=== PATIENT | female | born 1985 | race Caucasian/White ===

== ENCOUNTER 2017-09-03 10:17 | Emergency (ER) | payer SELFPAY | END 2017-09-03 10:51 | disposition left against medical advice (07) | PROVIDERS: Emergency Provider Nurse Practitioner Family; Family Provider Emergency Medicine; Visit Provider Nurse Practitioner Family | DX: Z51.89 Encounter for other specified aftercare (principal); R52 Pain, unspecified; Z53.21 Procedure and treatment not carried out due to patient leaving prior to being seen by health care provider | CPT/HCPCS: 99201; 99211 ==

== ENCOUNTER 2017-10-24 20:08 | Emergency (ER) | payer OTHER, MEDICAID, SELFPAY ==
[2017-10-24 20:14] VITALS: BP 98/58; PULSE 93; RESP 18; TEMP 36.8; O2SAT 100; BMI 30.2
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
[2017-10-24 21:07] LABS: Basophils % 0.2 % (0.1-2.0); Eosinophils # 0.1 K/mm3 (0.0-0.4); Eosinophils % 0.5 % (0.1-12.0); Hematocrit 43.7 % (37.0-47.0); Lymphocytes # 1.5 K/mm3 (0.7-4.5); Lymphocytes % 16.5 K/mm3 (10-50); Mean Corpuscular HGB Conc 32.1 g/dL (31.8-35.4); Mean Corpuscular Hemoglobin 27.5 pg (27.0-31.2); Mean Corpuscular Volume 85.7 fl (81-99); Mean Platelet Volume 6.7 fl (7.4-10.4); Monocytes # 0.5 K/mm3 (0.1-1.0); Neutrophils # 6.9 K/mm3 (1.8-7.8); Neutrophils % 77.7 % (37.0-80.0); Platelet Count 226 K/mm3 (142-424); Red Blood Count 5.11 M/mm3 (4.20-5.40); Red Cell Distribution Width 13.2 % (11.5-17.5); White Blood Count 8.9 K/mm3 (4.8-10.8)
[2017-10-24 21:19] LABS: Alanine Aminotransferase 185 U/L (12-78); Albumin Level 3.8 gm/dL (3.4-5.0); Albumin/Globulin Ratio 0.7 (1.1-1.8); Alkaline Phosphatase 213 U/L (46-116); Amylase 47 U/L (25-125); Anion Gap 14.8 mEq/L (5-15); Aspartate Amino Transferase 126 U/L (15-37); Bilirubin,Total 0.5 mg/dL (0.2-1.0); Blood Urea Nitrogen 9 mg/dL (7-18); Calcium 9.1 mg/dL (8.5-10.1); Carbon Dioxide 25 mmol/L (21.0-32.0); Chloride 105 mmol/L (98-107); Creatinine Clearance Estimated 128 mL/min (0-300); Creatinine,Serum 0.79 mg/dL (0.55-1.02); Estimated Glomerular Filt Rate 85 ml/min (>60); GFR (African American) 103 ML/MIN (>60); Globulin 5.2 gm/dl (1.3-3.2); Glucose 98 mg/dL (74-106); Potassium 4.8 mmoL/L (3.5-5.1); Sodium 140 mmol/L (136-145)
[2017-10-24 21:21] LABS: Lipase 144 u/L (73-393)
[2017-10-24 21:34] LABS: HCG Qualitative, Serum Negative (Negative)
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
[2017-10-24 22:07] VITALS: BP 118/78; PULSE 60; RESP 16; TEMP 36.9; O2SAT 98
== END 2017-10-24 22:07 | disposition home or self-care (01) ==
PROVIDERS: Emergency Provider Emergency Medicine; Family Provider Emergency Medicine
DX: S30.1XXA Contusion of abdominal wall, initial encounter (principal); S20.212A Contusion of left front wall of thorax, initial encounter; Z87.891 Personal history of nicotine dependence; V52.6XXA Passenger in pick-up truck or van injured in collision with two- or three-wheeled motor vehicle in traffic accident, initial encounter; Y92.414 Local residential or business street as the place of occurrence of the external cause
CPT/HCPCS: 71045; 71260; 72170; 74177; 80053; 82150; 83690; 84703; 85025; 99281; 99291; Q9967

== ENCOUNTER → 2017-11-13 14:44 | Outpatient (REF) | payer MEDICAID, SELFPAY ==
[2017-11-13 19:28] LABS: Amphetamine/Metha Screen,Urine Negative ng/mL (<1000); Barbiturates Screen,Urine Negative ng/mL (<200); Benzodiazepines Screen,Urine Negative ng/mL (200); Cannabinoid Screen,Urine Negative ng/mL (<50); Cocaine Screen,Urine Negative ng/g (<300); Methadone Screen,Urine Negative ng/mL (<300); Opiate Screen,Urine Positive ng/mL (<300); Phencyclidine Screen,Urine Negative ng/mL (<25)
== END ==
LOC: LAB 14:44
PROVIDERS: Visit Provider Emergency Medicine
DX: Z79.899 Other long term (current) drug therapy (principal)
CPT/HCPCS: 80305

== ENCOUNTER → 2017-11-15 13:50 | Outpatient (CLI) | payer MEDICAID, SELFPAY ==
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
== END ==
PROVIDERS: Family Provider Emergency Medicine; PCP Emergency Medicine; Visit Provider Emergency Medicine
DX: S20.219A Contusion of unspecified front wall of thorax, initial encounter (principal); S30.1XXA Contusion of abdominal wall, initial encounter; V89.2XXA Person injured in unspecified motor-vehicle accident, traffic, initial encounter
CPT/HCPCS: 70450; 72125

== ENCOUNTER → 2017-12-03 16:23 | Outpatient (REF) | payer MEDICAID, SELFPAY ==
[2017-12-04 14:27] LABS: Amphetamine/Metha Screen,Urine Negative ng/mL (<1000); Barbiturates Screen,Urine Negative ng/mL (<200); Benzodiazepines Screen,Urine Negative ng/mL (200); Cannabinoid Screen,Urine Negative ng/mL (<50); Cocaine Screen,Urine Negative ng/g (<300); Methadone Screen,Urine Negative ng/mL (<300); Opiate Screen,Urine Positive ng/mL (<300); Phencyclidine Screen,Urine Negative ng/mL (<25)
== END ==
LOC: LAB 16:23
PROVIDERS: Visit Provider Emergency Medicine
DX: Z79.899 Other long term (current) drug therapy (principal)
CPT/HCPCS: 80305

== ENCOUNTER → 2018-01-01 10:00 | Outpatient (REF) | payer MEDICAID, SELFPAY ==
[2018-01-01 16:34] LABS: Amphetamine/Metha Screen,Urine Negative ng/mL (<1000); Barbiturates Screen,Urine Negative ng/mL (<200); Benzodiazepines Screen,Urine Negative ng/mL (200); Cannabinoid Screen,Urine Negative ng/mL (<50); Cocaine Screen,Urine Negative ng/g (<300); Methadone Screen,Urine Negative ng/mL (<300); Opiate Screen,Urine Positive ng/mL (<300); Phencyclidine Screen,Urine Negative ng/mL (<25)
== END ==
LOC: LAB 10:00
PROVIDERS: Visit Provider Emergency Medicine
DX: Z79.899 Other long term (current) drug therapy (principal)
CPT/HCPCS: 80305

== ENCOUNTER → 2018-01-29 11:08 | Outpatient (REF) | payer MEDICAID, SELFPAY ==
[2018-01-29 18:53] LABS: Amphetamine/Metha Screen,Urine Negative ng/mL (<1000); Barbiturates Screen,Urine Negative ng/mL (<200); Benzodiazepines Screen,Urine Negative ng/mL (200); Cannabinoid Screen,Urine Negative ng/mL (<50); Cocaine Screen,Urine Negative ng/g (<300); Methadone Screen,Urine Negative ng/mL (<300); Opiate Screen,Urine Positive ng/mL (<300); Phencyclidine Screen,Urine Negative ng/mL (<25)
== END ==
LOC: LAB 11:08
PROVIDERS: Visit Provider Emergency Medicine
DX: Z79.899 Other long term (current) drug therapy (principal)
CPT/HCPCS: 80305

== ENCOUNTER → 2018-02-28 11:06 | Outpatient (REF) | payer MEDICAID, SELFPAY ==
[2018-02-28 14:53] LABS: Amphetamine/Metha Screen,Urine Negative ng/mL (<1000); Barbiturates Screen,Urine Negative ng/mL (<200); Benzodiazepines Screen,Urine Positive ng/mL (200); Cannabinoid Screen,Urine Negative ng/mL (<50); Cocaine Screen,Urine Negative ng/g (<300); Methadone Screen,Urine Negative ng/mL (<300); Opiate Screen,Urine Positive ng/mL (<300); Phencyclidine Screen,Urine Negative ng/mL (<25)
[2018-03-31 06:29] LABS: Benzodiazepines POSITIVE
[2018-03-31 06:32] LABS: Lorazepam Negative; Temazepam POSITIVE
[2018-03-31 06:33] LABS: Midazolam Negative; Triazolam Negative
[2018-03-31 06:34] LABS: Alprazolam Negative; Clonazepam Negative
[2018-03-31 06:35] LABS: Flurazepam Negative
== END ==
LOC: LAB 11:06
PROVIDERS: Physician Assistant; Visit Provider Emergency Medicine
DX: Z79.899 Other long term (current) drug therapy (principal)
CPT/HCPCS: 80305; 80346

== ENCOUNTER → 2018-03-01 11:00 | Outpatient (CLI) | payer MEDICAID, SELFPAY | PROVIDERS: Visit Provider Physician Assistant | DX: Z79.899 Other long term (current) drug therapy (principal) | CPT/HCPCS: 80346 ==

== ENCOUNTER → 2018-03-10 15:59 | Outpatient (REF) | payer MEDICAID, SELFPAY ==
[2018-03-10 18:32] LABS: Amphetamine/Metha Screen,Urine Negative ng/mL (<1000); Barbiturates Screen,Urine Negative ng/mL (<200); Benzodiazepines Screen,Urine Negative ng/mL (200); Cannabinoid Screen,Urine Negative ng/mL (<50); Cocaine Screen,Urine Negative ng/g (<300); Methadone Screen,Urine Negative ng/mL (<300); Opiate Screen,Urine Positive ng/mL (<300); Phencyclidine Screen,Urine Negative ng/mL (<25)
== END ==
LOC: LAB 15:59
PROVIDERS: Visit Provider Emergency Medicine
DX: Z79.899 Other long term (current) drug therapy (principal)
CPT/HCPCS: 80305

== ENCOUNTER → 2021-03-24 17:38 | Outpatient (CLI) | payer MEDICAID, SELFPAY ==
[2021-03-24 18:21] LABS: Basophils # 0.1 K/mm3 (0-0.2); Basophils % 0.7 % (0.1-2.0); Eosinophils # 0.1 K/mm3 (0.0-0.4); Eosinophils % 1.5 % (0.1-12.0); Hematocrit 40.7 % (37.0-47.0); Lymphocytes # 2.5 K/mm3 (0.7-4.5); Lymphocytes % 34.6 % (10-50); Mean Corpuscular HGB Conc 34.3 g/dL (31.8-35.4); Mean Corpuscular Hemoglobin 29.7 pg (27.0-31.2); Mean Corpuscular Volume 86.8 fl (81-99); Mean Platelet Volume 8.5 fl (7.4-10.4); Monocytes # 0.4 K/mm3 (0.1-1.0); Monocytes % 5.6 % (1.7-9.3); Neutrophils # 4.1 K/mm3 (1.8-7.8); Neutrophils % 57.8 % (37.0-80.0); Platelet Count 280 K/mm3 (142-424); Red Blood Count 4.69 M/mm3 (4.20-5.40); Red Cell Distribution Width 14.1 % (11.5-17.5); White Blood Count 7.1 K/mm3 (4.8-10.8)
[2021-03-24 18:26] LABS: Alanine Aminotransferase 233 U/L (12-78); Albumin Level 4.6 g/dl (3.5-5.0); Albumin/Globulin Ratio 1.2 (1.1-1.8); Alkaline Phosphatase 155 U/L (38-126); Anion Gap 16.7 mEq/L (5-15); Aspartate Amino Transferase 200 U/L (14-36); Bilirubin,Total 0.7 mg/dl (0.2-1.3); Blood Urea Nitrogen 15 mg/dl (7-17); Calcium 9.8 mg/dl (8.4-10.2); Carbon Dioxide 20 mmol/L (22.0-30.0); Chloride 108 mmol/L (98-107); Chol/HDL Ratio 2.9 (1-3.5); Cholesterol 203 mg/dl (140-200); Estimated Glomerular Filt Rate 114 ml/min (>60); GFR (African American) 138 ML/MIN (>60); Globulin 3.9 g/dL (1.3-3.2); Glucose 100 mg/dl (74-100); HDL Cholesterol 70 mg/dl (40-60); Potassium 4.7 mmoL/L (3.5-5.1); Sodium 140 mmol/L (136-145); Total Protein,Serum 8.5 g/dl (6.3-8.2); Triglycerides 110 mg/dl (30-150); VLDL Cholesterol 22 mg/dL (0-40)
[2021-03-24 18:37] LABS: Direct LDL Cholesterol 88.56 mg/dL (100-129)
[2021-03-24 18:43] LABS: 25-OH Vitamin D, Total 25.3 ng/mL (30-100)
[2021-03-24 18:54] LABS: Erythrocyte Sedimentation Rate 24 mm/hr (0-20)
[2021-03-24 18:56] LABS: Thyroid Stimulating Hormone 1.58 uIU/mL (0.465-4.68)
== END ==
PROVIDERS: Visit Provider Emergency Medicine
DX: R53.83 Other fatigue (principal); E55.9 Vitamin D deficiency, unspecified
CPT/HCPCS: 80053; 80061; 82306; 84439; 84443; 85025; 85651

== ENCOUNTER → 2021-04-27 08:42 | Outpatient (CLI) | payer MEDICAID, SELFPAY ==
--- NOTE | 2021-04-27 08:48 | US_ITS ---
PROCEDURE: US LIVER CLINICAL INDICATION: Elevated Liver Enzymes COMPARISON: CT ABDPELW CT abdomen pelvis w con from 10/24/2017 FINDINGS: PANCREAS: Unremarkable. No obvious mass or abnormal fluid collection. No ductal dilatation LIVER: Prior cholecystectomy. Mild biliary dilatation with common bile duct measuring 7 mm and minimal intrahepatic biliary ductal dilatation. No focal liver lesion evident. Appropriate portal blood flow direction. RIGHT KIDNEY: Unremarkable. Normal size and echogenicity. No hydronephrosis GALLBLADDER: Prior cholecystectomy. Common bile duct measures 7 mm. IMPRESSION: Prior cholecystectomy with mild prominence of the biliary tree which may be due to reservoir effect from the previous gallbladder surgery. Otherwise negative Dictated by: Raghav Wynne MD 04/27/2021 12:15 Raghav Wynne MD in [place] 04/27/2021 12:15
[2021-04-27 09:48] LABS: Basophils % 0.6 % (0.1-2.0); Eosinophils # 0.1 K/mm3 (0.0-0.4); Eosinophils % 1.5 % (0.1-12.0); Hematocrit 42.3 % (37.0-47.0); Hemoglobin 14.3 g/dL (12.2-16.2); Lymphocytes # 2.7 K/mm3 (0.7-4.5); Lymphocytes % 36.9 % (10-50); Mean Corpuscular HGB Conc 33.8 g/dL (31.8-35.4); Mean Corpuscular Hemoglobin 30.1 pg (27.0-31.2); Mean Corpuscular Volume 89.2 fl (81-99); Monocytes # 0.3 K/mm3 (0.1-1.0); Monocytes % 3.8 % (1.7-9.3); Neutrophils # 4.2 K/mm3 (1.8-7.8); Neutrophils % 57.3 % (37.0-80.0); Platelet Count 259 K/mm3 (142-424); Red Blood Count 4.75 M/mm3 (4.20-5.40); White Blood Count 7.3 K/mm3 (4.8-10.8)
[2021-04-27 10:22] LABS: Prothrombin Time 10.6 seconds (10.1-12.5)
[2021-04-27 10:32] LABS: INR 0.89 (0.9-1.1)
[2021-04-27 11:08] LABS: Chloride 105 mmol/L (98-107); Potassium 4.8 mmoL/L (3.5-5.1); Sodium 140 mmol/L (136-145)
[2021-04-27 11:11] LABS: Alanine Aminotransferase 25 U/L (12-78); Albumin Level 4.6 g/dl (3.5-5.0); Albumin/Globulin Ratio 1.1 (1.1-1.8); Alkaline Phosphatase 135 U/L (38-126); Anion Gap 13.8 mEq/L (5-15); Aspartate Amino Transferase 29 U/L (14-36); Bilirubin,Total 0.5 mg/dl (0.2-1.3); Blood Urea Nitrogen 18 mg/dl (7-17); Carbon Dioxide 26 mmol/L (22.0-30.0); Estimated Glomerular Filt Rate 72 ml/min (>60); GFR (African American) 87 ML/MIN (>60); Globulin 4.1 g/dL (1.3-3.2); Total Protein,Serum 8.7 g/dl (6.3-8.2)
[2021-04-27 11:12] LABS: Calcium 9.4 mg/dl (8.4-10.2); Glucose 77 mg/dl (74-100)
[2021-04-28 09:25] LABS: HIV Screen 4th Generation wRfx Non Reactive (Non Reactive)
[2021-04-28 10:13] LABS: Hep A Ab, IgM Negative (Negative); Hep A Ab, Total Positive (Negative); Hep B Core Ab, Total Negative (Negative); Hep B Surface Ab, Qual Reactive (.); Hepatitis B Surface Antigen Negative (Negative); Hepatitis C Antibody >11.0 s/co ratio (0.0-0.9)
[2021-05-02 11:38] LABS: HCV Genotype Charge YES; Hepatitis C Genotype 1b (.)
== END ==
PROVIDERS: PCP Emergency Medicine; Visit Provider Nurse Practitioner Family
DX: B19.20 Unspecified viral hepatitis C without hepatic coma (principal); R79.89 Other specified abnormal findings of blood chemistry
CPT/HCPCS: 36415; 76705; 80053; 85025; 85610; 86703; 86704; 86706; 86708; 87340; 87380; 87522; 87902; G0432

== ENCOUNTER → 2021-07-26 11:20 | Outpatient (CLI) | payer MEDICAID, SELFPAY ==
[2021-07-26 12:37] LABS: Basophils % 0.7 % (0.1-2.0); Eosinophils # 0.1 K/mm3 (0.0-0.4); Eosinophils % 1.4 % (0.1-12.0); Hematocrit 41.5 % (37.0-47.0); Hemoglobin 13.9 g/dL (12.2-16.2); Lymphocytes # 2.9 K/mm3 (0.7-4.5); Lymphocytes % 45.1 % (10-50); Mean Corpuscular HGB Conc 33.4 g/dL (31.8-35.4); Mean Corpuscular Hemoglobin 30.2 pg (27.0-31.2); Mean Corpuscular Volume 90.3 fl (81-99); Mean Platelet Volume 7.1 fl (7.4-10.4); Monocytes # 0.3 K/mm3 (0.1-1.0); Neutrophils % 47.7 % (37.0-80.0); Platelet Count 309 K/mm3 (142-424); Red Cell Distribution Width 13.3 % (11.5-17.5); White Blood Count 6.4 K/mm3 (4.8-10.8)
[2021-07-26 13:46] LABS: Chloride 108 mmol/L (98-107); Potassium 4.6 mmoL/L (3.5-5.1); Sodium 140 mmol/L (136-145)
[2021-07-26 13:48] LABS: Alanine Aminotransferase 34 U/L (12-78); Aspartate Amino Transferase 39 U/L (14-36); Blood Urea Nitrogen 11 mg/dl (7-17); Estimated Glomerular Filt Rate 114 ml/min (>60); GFR (African American) 138 ML/MIN (>60)
[2021-07-26 13:49] LABS: Albumin Level 4.1 g/dl (3.5-5.0); Albumin/Globulin Ratio 1.2 (1.1-1.8); Alkaline Phosphatase 108 U/L (38-126); Anion Gap 13.6 mEq/L (5-15); Bilirubin,Total 0.3 mg/dl (0.2-1.3); Calcium 9.4 mg/dl (8.4-10.2); Carbon Dioxide 23 mmol/L (22.0-30.0); Globulin 3.4 g/dL (1.3-3.2); Glucose 89 mg/dl (74-100); Total Protein,Serum 7.5 g/dl (6.3-8.2)
== END ==
PROVIDERS: Nurse Practitioner Family; Visit Provider Family Medicine
DX: B18.2 Chronic viral hepatitis C (principal)
CPT/HCPCS: 36415; 80053; 85025; 87522

== ENCOUNTER → 2021-08-08 14:03 | Outpatient (CLI) | payer MEDICAID, SELFPAY ==
[2021-08-08 15:23] LABS: Amphetamine/Metha Screen,Urine Negative ng/ml (<1000)
[2021-08-08 15:24] LABS: Barbiturates Screen,Urine Negative ng/ml (<200); Benzodiazepines Screen,Urine Negative ng/ml (<200)
[2021-08-08 15:25] LABS: Cannabinoid Screen,Urine Negative ng/ml (<50)
[2021-08-08 15:26] LABS: Methadone Screen,Urine Negative ng/ml (<300)
[2021-08-08 15:27] LABS: Cocaine Screen,Urine Negative ng/ml (<300); Opiate Screen,Urine Negative ng/ml (<300)
[2021-08-08 15:28] LABS: Phencyclidine Screen,Urine Negative ng/ml (<25)
== END ==
PROVIDERS: Visit Provider Emergency Medicine
DX: Z79.899 Other long term (current) drug therapy (principal); Z01.89 Encounter for other specified special examinations
CPT/HCPCS: 80305

== ENCOUNTER → 2021-08-22 09:24 | Outpatient (POV) | payer MEDICAID, SELFPAY ==
[2021-08-22 09:47] VITALS: BP 161/91; PULSE 93; RESP 18; O2SAT 98; BMI 34.7
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
== END ==
PROVIDERS: Visit Provider Clinical Nurse Specialist Family Health
DX: M54.2 Cervicalgia (principal); M54.12 Radiculopathy, cervical region; M54.6 Pain in thoracic spine
CPT/HCPCS: 99202; G0463

== ENCOUNTER → 2021-08-25 16:35 | Outpatient (CLI) | payer MEDICAID, SELFPAY ==
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
== END ==
PROVIDERS: PCP Emergency Medicine; Visit Provider Emergency Medicine
DX: M54.9 Dorsalgia, unspecified (principal); M54.50 Low back pain, unspecified
CPT/HCPCS: 72148; 76376

== ENCOUNTER → 2021-08-28 13:51 | Outpatient (CLI) | payer MEDICAID, SELFPAY ==
--- NOTE | 2021-08-28 13:54 | MR_ITS ---
PROCEDURE INFORMATION: Exam: MR Cervical Spine Without Contrast Exam date and time: 08/28/2021 1:54 PM Age: 36 years old Clinical indication: Pain; Cervicalgia; Additional info: Neck pain. Popping in neck. Unable to fully turn neck. Headache. Lt arm pain, numbness, and tingling. Pior CT 11-15-17. TECHNIQUE: Imaging protocol: Multiplanar magnetic resonance images of the cervical spine without contrast. [place] [facility] [place] [facility] wo con 11/15/2017 1:57 PM FINDINGS: Vertebrae: Unremarkable. Spinal cord: Normal signal. No cord compression. C2-C3: No significant disc disease. No significant spinal stenosis. C3-C4: No significant disc disease. No significant spinal stenosis. C4-C5: No significant disc disease. No significant spinal stenosis. C5-C6: No significant disc disease. No significant spinal stenosis. C6-C7: No significant disc disease. No significant spinal stenosis. C7-T1: No significant disc disease. No significant spinal stenosis. Soft tissues: Unremarkable. Vertebral arteries: Expected flow voids in the vertebral arteries. IMPRESSION: Unremarkable spine.
== END ==
PROVIDERS: PCP Emergency Medicine; Visit Provider Clinical Nurse Specialist Family Health
DX: M54.2 Cervicalgia (principal)
CPT/HCPCS: 72141; 76376

== ENCOUNTER → 2021-11-03 16:00 | Outpatient (CLI) | payer MEDICAID, SELFPAY ==
[2021-11-03 13:49] LABS: Amphetamine/Metha Screen,Urine Negative ng/ml (<1000)
[2021-11-03 13:50] LABS: Barbiturates Screen,Urine Negative ng/ml (<200)
[2021-11-03 13:51] LABS: Benzodiazepines Screen,Urine Negative ng/ml (<200); Cannabinoid Screen,Urine Negative ng/ml (<50)
[2021-11-03 13:52] LABS: Cocaine Screen,Urine Negative ng/ml (<300); Methadone Screen,Urine Negative ng/ml (<300)
[2021-11-03 13:54] LABS: Opiate Screen,Urine Negative ng/ml (<300); Phencyclidine Screen,Urine Negative ng/ml (<25)
== END ==
PROVIDERS: Visit Provider Emergency Medicine
DX: M54.6 Pain in thoracic spine (principal)
CPT/HCPCS: 80305

== ENCOUNTER 2021-12-17 08:08 | Emergency (ER) | payer MEDICAID, SELFPAY ==
[2021-12-17] VITALS (7 sets, daily range): BP systolic 99–141; BP diastolic 61–97; PULSE 84–100; RESP 17–20; TEMP 36.6; O2SAT 97–100; BMI 31.8
--- NOTE | 2021-12-17 08:12 | PC.NURSE ---
ED MD at
--- NOTE | 2021-12-17 08:20 | HMH.EDGENADL ---
ED Disposition Clinical Impression: Nausea vomiting and diarrhea Disposition: Home, Self-Care Condition on Discharge: Good Instructions: DI for Diarrhea and Traveler's Diarrhea -- Adult, DI for Nausea -- Adult Prescriptions: ondansetron HCL [Ondansetron 4mg tab*] 4 mg PO Q6 PRN #12 tab PRN Reason: Nausea Transmission Status: Re[facility] by [facility] Referrals: Jose Valerio MD [Primary Care Provider] - Forms: Work/School Release Time of Disposition: 10:15 - Critical Care Critical Care Time: No Attestation: On 12/17/21, the high probability of a clinically significant, sudden or life threatening deterioration of the following system(s) required my full and direct attention, intervention and personal management. The time I documented below is in addition to time spent performing reported procedures but includes the following listed in this critical care notation. Medical Decision Making - Medical Records Medical records reviewed: Yes: I reviewed the patient's medical records. - Dayne Inquiry Pt receiving controlled substance: No Vital Signs: 12/17/21 08:17 12/17/21 08:45 12/17/21 09:06 Temperature 98 F Temperature Source Oral Pulse Rate 100 H 88 Pulse Rate [Left Radial] 100 H Respiratory Rate 17 Blood Pressure 101/97 L 99/61 L Blood Pressure [Right Arm] 141/83 H Blood Pressure Mean Blood Pressure Mean [Right Arm] 102 02 Sat by Pulse Oximetry 97 99 100 Oxygen Delivery Method Room Air 12/17/21 09:18 12/17/21 09:47 Temperature Temperature Source Pulse Rate 84 87 Pulse Rate [Left Radial] Respiratory Rate Blood Pressure 114/87 Blood Pressure [Right Arm] Blood Pressure Mean 96 Blood Pressure Mean [Right Arm] 02 Sat by Pulse Oximetry 100 100 Oxygen Delivery Method - Lab Data Lab Results 12/17/21 08:40: WBC 6.8, RBC 4.76, Hgb 14.1, Hct 43.0, MCV 90.3, MCH 29.5, MCHC 32.7, RDW 13.4, Plt Count 253, MPV 6.9 L, Neut % (Auto) 67.7, Lymph % (Auto) 23.6, [place] % (Auto) 5.5, Eos % (Auto) 1.3, Baso % (Auto) 1.9, Neut # (Auto) 4.6, Lymph # (Auto) 1.6, [place] # (Auto) 0.4, Eos # (Auto) 0.1, Baso # (Auto) 0.1 12/17/21 08:40: Sodium 137, Potassium 3.9, Chloride 110 H, Carbon Dioxide 19 L, Anion Gap 11.9, BUN 11, Creatinine 0.60, Estimated Creat Clear 170, Estimated GFR 114, Est GFR ( Amer) 138, Glucose 114 H, Calcium 8.8, Total Bilirubin 0.5, AST 40 H, ALT 39, Alkaline Phosphatase 109, Total Protein 7.4, Albumin 4.0, Globulin 3.4 H, Albumin/Globulin Ratio 1.2, Lipase 187 12/17/21 10:05: Urine Color Yellow, Urine Appearance Clear, Urine pH 5.5, Ur Specific [place] 1.025, Urine Protein 2+, Urine Glucose (UA) Negative, Urine Ketones Negative, Urine Blood Negative, Urine Nitrate Negative, Urine Bilirubin Negative, Urine Urobilinogen 0.2, Ur Leukocyte Esterase Negative 12/17/21 10:05: Urine HCG, Qual Negative Result diagrams: 12/17/21 08:40 12/17/21 08:40 Orders (Tests/Meds): ED MEDICATIONS Discontinued Medications Generic Name Dose Route Start Last Admin Trade Name Freq PRN Reason Stop Dose Admin Sodium Chloride 1,000 mls @ 999 mls/hr 12/17/21 08:30 12/17/21 08:56 Sod Chlor 0.9% 1000ml Bag IV 12/17/21 09:30 999 mls/hr .Q1H1M JUANY Administration Ondansetron HCl 4 mg 12/17/21 08:17 12/17/21 08:56 Ondansetron 4mg/2ml Vial IV 12/17/21 08:18 4 mg ONCE ONE Administration ORDERS Category Date Time Status Urinalysis and Microscopic Stat Lab 12/17/21 10:05 Results Medical Decision Narrative: In summary this is a 36-year-old female presenting to the emergency department with nausea, vomiting, diarrhea. Patient clinically stable on arrival. Vital signs within normal limits. Afebrile. Most likely diagnosis is viral illness. However, patient has medication controlled diabetes. Will obtain CBC, CMP, lipase, urinalysis, hCG. Patient given IV fluids and 4 mg IV Zofran. Initial laboratory results are reassuring. No leukocy
[2021-12-17 08:50] LABS: Basophils # 0.1 K/mm3 (0-0.2); Basophils % 1.9 % (0.1-2.0); Eosinophils # 0.1 K/mm3 (0.0-0.4); Eosinophils % 1.3 % (0.1-12.0); Hemoglobin 14.1 g/dL (12.2-16.2); Lymphocytes # 1.6 K/mm3 (0.7-4.5); Lymphocytes % 23.6 % (10-50); Mean Corpuscular HGB Conc 32.7 g/dL (31.8-35.4); Mean Corpuscular Hemoglobin 29.5 pg (27.0-31.2); Mean Corpuscular Volume 90.3 fl (81-99); Mean Platelet Volume 6.9 fl (7.4-10.4); Monocytes # 0.4 K/mm3 (0.1-1.0); Monocytes % 5.5 % (1.7-9.3); Neutrophils # 4.6 K/mm3 (1.8-7.8); Neutrophils % 67.7 % (37.0-80.0); Platelet Count 253 K/mm3 (142-424); Red Blood Count 4.76 M/mm3 (4.20-5.40); Red Cell Distribution Width 13.4 % (11.5-17.5); White Blood Count 6.8 K/mm3 (4.8-10.8)
[2021-12-17 08:57] LABS: Chloride 110 mmol/L (98-107); Potassium 3.9 mmoL/L (3.5-5.1); Sodium 137 mmol/L (136-145)
[2021-12-17 08:59] LABS: Blood Urea Nitrogen 11 mg/dl (7-17); Creatinine Clearance Estimated 170 mL/min (50-200); Estimated Glomerular Filt Rate 114 ml/min (>60); GFR (African American) 138 ML/MIN (>60)
[2021-12-17 09:00] LABS: Alanine Aminotransferase 39 U/L (12-78); Albumin/Globulin Ratio 1.2 (1.1-1.8); Alkaline Phosphatase 109 U/L (38-126); Anion Gap 11.9 mEq/L (5-15); Aspartate Amino Transferase 40 U/L (14-36); Bilirubin,Total 0.5 mg/dl (0.2-1.3); Calcium 8.8 mg/dl (8.4-10.2); Carbon Dioxide 19 mmol/L (22.0-30.0); Globulin 3.4 g/dL (1.3-3.2); Glucose 114 mg/dl (74-100); Lipase 187 U/L (23-300); Total Protein,Serum 7.4 g/dl (6.3-8.2)
--- NOTE | 2021-12-17 09:08 | PC.NURSE ---
PT in room receiving fluid laying in bed
--- NOTE | 2021-12-17 09:21 | PC.NURSE ---
pt to restroom to get urine sample
--- NOTE | 2021-12-17 09:25 | PC.NURSE ---
unable to urinate, pt back to room
[2021-12-17 10:09] LABS: Microscopic, Urine URINE MICROSCOPIC (MICROSCOPIC)
[2021-12-17 10:11] LABS: Appearance,Urine CLEAR (Clear); Bilirubin,Urine Negative (Negative); Blood, Urine Negative (Negative); Color,Urine YELLOW (Yellow); Glucose,Urine (UA) Negative (Negative); Ketones,Urine Negative (Negative); Leukocyte Esterase,Urine Negative (Negative); Nitrate,Urine Negative (Negative); PH,Urine 5.5 (5.0-8.5); Protein,Urine 2+ (Negative); Specific Gravity, Urine 1.025 (1.005-1.030); Urobilinogen,Urine 0.2 EU/dl (0.2)
[2021-12-17 10:13] LABS: Urine Pregnancy, HCG Qual. Negative (Negative)
[2021-12-17 10:30] LABS: RBC,Urine Occasional #/hpf (0-3)
[2021-12-17 10:31] LABS: Bacteria,Urine 1+ /lpf; Mucus,Urine Trace /lpf
== END 2021-12-17 10:21 | disposition home or self-care (01) ==
PROVIDERS: Emergency Provider Emergency Medicine; PCP Emergency Medicine
DX: R11.2 Nausea with vomiting, unspecified (principal); R19.7 Diarrhea, unspecified; M54.2 Cervicalgia; M54.9 Dorsalgia, unspecified; Z20.822 Contact with and (suspected) exposure to COVID-19; E11.9 Type 2 diabetes mellitus without complications; F41.9 Anxiety disorder, unspecified; Z79.1 Long term (current) use of non-steroidal anti-inflammatories (NSAID); Z79.84 Long term (current) use of oral hypoglycemic drugs; Z79.899 Other long term (current) drug therapy; Z88.5 Allergy status to narcotic agent; Z88.6 Allergy status to analgesic agent; Z87.891 Personal history of nicotine dependence; Z82.49 Family history of ischemic heart disease and other diseases of the circulatory system
CPT/HCPCS: 80053; 81001; 81025; 83690; 85025; 96361; 96365; 96374; 96375; 99283; J2405

== ENCOUNTER → 2021-12-29 19:57 | Outpatient (CLI) | payer MEDICAID, SELFPAY ==
[2021-12-29 13:57] LABS: Amphetamine/Metha Screen,Urine Negative ng/ml (<1000)
[2021-12-29 13:58] LABS: Barbiturates Screen,Urine Negative ng/ml (<200)
[2021-12-29 13:59] LABS: Benzodiazepines Screen,Urine Negative ng/ml (<200); Cannabinoid Screen,Urine Negative ng/ml (<50)
[2021-12-29 14:00] LABS: Cocaine Screen,Urine Negative ng/ml (<300)
[2021-12-29 14:01] LABS: Methadone Screen,Urine Negative ng/ml (<300)
[2021-12-29 14:02] LABS: Opiate Screen,Urine Negative ng/ml (<300); Phencyclidine Screen,Urine Negative ng/ml (<25)
== END ==
PROVIDERS: PCP Emergency Medicine; Visit Provider Emergency Medicine
DX: Z79.899 Other long term (current) drug therapy (principal)
CPT/HCPCS: 80305

== ENCOUNTER 2022-01-10 08:48 | Emergency (ER) | payer MEDICAID, SELFPAY ==
[2022-01-10 09:05] VITALS: BP 132/76; PULSE 104; RESP 17; O2SAT 99; BMI 31.8
[2022-01-10 09:15] VITALS: BP 119/75; PULSE 100; RESP 19; TEMP 36.9; O2SAT 99; BMI 31.8
--- NOTE | 2022-01-10 10:34 | HMH.EDUTC ---
[facility] [place] Clinical Impression: Need for Tdap vaccination Laceration of left thumb Qualifiers: Encounter type: initial encounter Damage to nail status: without damage Foreign body presence: without foreign body Qualified Code(s): S61.012A - Laceration without foreign body of left thumb without damage to nail, initial encounter Disposition: Home, Self-Care Condition on Discharge: Good Instructions: How to Care for a Laceration After Repair, DI for Laceration Repair-Skin Glue Additional Instructions: Keep the wound clean and dry. Watch the for signs of infection, such as redness, swelling, drainage, fever. etc. Take tylenol or ibuprofen for pain. Follow up with her regular doctor or return here for any problems or issues. GO TO THE ER FOR ANY WORSENING SYMPTOMS OR CONCERNS. Prescriptions: cephALEXin [cephALEXin 500mg capsule] 500 mg PO Q6H 7 Days #28 cap Transmission Status: Received by [facility] Referrals: Jose Valerio MD [Primary Care Provider] - Forms: Work/School Release Time of Disposition: 10:37 Medical Decision Making - Medical Records Medical records reviewed: No: I reviewed the patient's medical records. - Dayne Inquiry Pt receiving controlled substance: No Vital Signs: 01/10/22 09:05 01/10/22 09:15 01/10/22 10:52 Temperature 98.5 F 98.5 F Temperature Source Oral Pulse Rate 100 H Pulse Rate [Left Radial] 104 H 100 H Respiratory Rate 17 19 19 Blood Pressure 119/75 Blood Pressure [Right Arm] 132/76 119/75 Blood Pressure Mean [Right Arm] 94 89 02 Sat by Pulse Oximetry 99 99 Oxygen Delivery Method Room Air Orders (Tests/Meds): ED MEDICATIONS Discontinued Medications Generic Name Dose Route Start Last Admin Trade Name Freq PRN Reason Stop Dose Admin Tetanus/Reduced Diphtheria/Acell Pertussis 0.5 ml 01/10/22 09:29 01/10/22 09:39 Tet/Diphth/Pert-Adult 0.5ml Syringe IM 01/10/22 09:30 0.5 ml .ONCE ONE Administration [facility] [place] - General Stated complaint: [id number] left thumb Time Seen by Provider: 01/10/22 09:35 Mode of Arrival: Ambulatory Source of Information: Patient Limitations: No Limitations Description of Symptoms (Recalled from Triage Doc. by RN): pt presents with a small lac on the pad of her L thumb. HEENT Symptoms (Recalled from RN notes): No Resp Symptoms (Recalled from RN notes): No Skin Symptoms (Recalled from RN notes): Yes MS Symptoms (Recalled from RN notes): No Functional Status (Recalled from RN notes): wnl - History of Present Illness Provider Complaint: She was at work this morning when she slipped and cut the palm side of her left thumb. Her tdap is not up to date. - Related Data Previous Rx's Medication Instructions Recorded metformin 500 mg tablet See Rx Instructions .ROUTE 11/14/21 .COMPLEX #60 tab quetiapine 100 mg tablet See Rx Instructions .ROUTE 11/14/21 .COMPLEX #30 tab ondansetron HCL [Ondansetron 4mg 4 mg PO Q6 PRN #12 tab 12/17/21 tab*] bupropion HCl 150 mg tablet,12 hr See Rx Instructions .ROUTE 12/29/21 sustained-release .COMPLEX #60 tablet clonazepam 1 mg tablet 1 mg PO TID #90 tab 12/29/21 gabapentin 300 mg capsule 300 mg PO TID #90 cap 12/29/21 oxycodone-acetaminophen 5 mg-325 1 tab PO BID #60 tab 12/29/21 mg tablet cephALEXin [cephALEXin 500mg 500 mg PO Q6H 7 Days #28 cap 01/10/22 capsule] ibuprofen 800 mg tablet 800 mg PO BID #60 tab 01/10/22 Allergies Allergy/AdvReac Type Severity Reaction Status Date / Time hydrocodone [HYDROCODONE] Allergy Unknown Verified 01/10/22 14:01 - Worker's Comp Is this a Worker's Comp case?: Yes Is this an H Worker's Comp?: No Is this a [place] Worker's Comp?: No [facility] History - Hepatitis A Screen Drug use history?: No High risk sexual behaviors?: No History of sexually transmitted infection?: No Currently employed?: No Childcare worker?: No Do you have indoor plumbing?: Yes Do you have electricity?: Y
[2022-01-10 10:52] VITALS: BP 119/75; PULSE 100; RESP 19; TEMP 36.9
== END 2022-01-10 10:58 | disposition home or self-care (01) ==
PROVIDERS: Emergency Provider Nurse Practitioner Family; PCP Emergency Medicine
DX: S61.012A Laceration without foreign body of left thumb without damage to nail, initial encounter (principal); F41.9 Anxiety disorder, unspecified; Z79.1 Long term (current) use of non-steroidal anti-inflammatories (NSAID); Z79.84 Long term (current) use of oral hypoglycemic drugs; Z88.5 Allergy status to narcotic agent; Z88.6 Allergy status to analgesic agent; Z23 Encounter for immunization; Z87.891 Personal history of nicotine dependence; Z82.49 Family history of ischemic heart disease and other diseases of the circulatory system
CPT/HCPCS: 12001; 90471; 90715; 99213; G0463

== ENCOUNTER → 2022-02-26 16:53 | Outpatient (CLI) | payer MEDICAID, SELFPAY ==
[2022-02-26 14:02] LABS: Amphetamine/Metha Screen,Urine Negative ng/ml (<1000); Barbiturates Screen,Urine Negative ng/ml (<200)
[2022-02-26 14:03] LABS: Benzodiazepines Screen,Urine Negative ng/ml (<200)
[2022-02-26 14:05] LABS: Cannabinoid Screen,Urine Negative ng/ml (<50)
[2022-02-26 14:06] LABS: Cocaine Screen,Urine Negative ng/ml (<300); Methadone Screen,Urine Negative ng/ml (<300)
[2022-02-26 14:07] LABS: Opiate Screen,Urine Negative ng/ml (<300)
[2022-02-26 14:08] LABS: Phencyclidine Screen,Urine Negative ng/ml (<25)
== END ==
PROVIDERS: Visit Provider Emergency Medicine
DX: Z79.899 Other long term (current) drug therapy (principal)
CPT/HCPCS: 80305

== ENCOUNTER → 2022-04-24 18:27 | Outpatient (CLI) | payer MEDICAID, SELFPAY ==
[2022-04-24 16:05] LABS: Amphetamine/Metha Screen,Urine Negative ng/ml (<1000)
[2022-04-24 16:06] LABS: Barbiturates Screen,Urine Negative ng/ml (<200); Benzodiazepines Screen,Urine Negative ng/ml (<200)
[2022-04-24 16:07] LABS: Cannabinoid Screen,Urine Negative ng/ml (<50)
[2022-04-24 16:08] LABS: Cocaine Screen,Urine Negative ng/ml (<300); Methadone Screen,Urine Negative ng/ml (<300)
[2022-04-24 16:09] LABS: Opiate Screen,Urine Negative ng/ml (<300); Phencyclidine Screen,Urine Negative ng/ml (<25)
== END ==
PROVIDERS: PCP Family Medicine; Visit Provider Family Medicine
DX: Z79.899 Other long term (current) drug therapy (principal)
CPT/HCPCS: 80305

== ENCOUNTER 2022-05-05 17:36 | Emergency (ER) | payer MEDICAID, SELFPAY ==
[2022-05-05 17:44] VITALS: BP 114/67; PULSE 110; RESP 20; TEMP 36.9; O2SAT 98; BMI 33.8
[2022-05-05 18:05] VITALS: BP 114/67; PULSE 110; RESP 20; TEMP 36.9; O2SAT 98; BMI 34.0
[2022-05-05 18:20] LABS: Color,Urine Yellow (Yellow)
[2022-05-05 18:21] LABS: Apearance,Urine Cloudy (Clear); Bilirubin,Urine Negative (Negative); Blood, Urine Trace (Negative); Glucose,Urine (UA) Negative (Negative); Ketones,Urine Negative (Negative); PH,Urine 6.5 (5.0-8.5); Protein,Urine 1+ (Negative); UTC Leukocyte Esterase,Urine Negative (Negative); UTC Nitrate,Urine Positive (Negative); Urobilinogen,Urine 0.2 EU/dl (0.2)
--- NOTE | 2022-05-05 18:38 | HMH.EDUTC ---
[facility] [place]ression: Laceration of left thumb Qualifiers: Encounter type: initial encounter Damage to nail status: without damage Foreign body presence: without foreign body Qualified Code(s): S61.012A - Laceration without foreign body of left thumb without damage to nail, initial encounter UTI (urinary tract infection) Qualifiers: Urinary tract infection type: acute cystitis Hematuria presence: with hematuria Qualified Code(s): N30.01 - Acute cystitis with hematuria Disposition: Home, Self-Care Condition on Discharge: Good Instructions: DI for Laceration Repair -- Simple, DI for Laceration Repair -- Finger, Urinary Tract Infection Additional Instructions: Increase fluids, water and not soda or tea. Can drink cranberry juice or cranberry extract. White front to back Wear cotton underwear Empty bladder after intercourse Start antibiotics immediately and make sure you take the full course although you may start to see improvement over the next 48 hours. You can eat yogurt or take probiotics to decrease diarrhea or yeast infection caused by the antibiotic Be sure to follow-up anytime for new or worsening symptoms in 48 hours for wound urine culture results be sure to let you PCP no recent urine for culture so they can request records and ensure that you have appropriate antibiotic if you are not getting better or getting worse. If symptoms worsen or do not improve return or be seen in the ER. Follow-up with primary care this week. keep area clean and dry monitor for s/s of infection return in 7 days for suture removal Prescriptions: cephALEXin [Cephalexin 500mg Tab] 500 mg PO BID 7 Days #14 tab Prescription Printed Referrals: Jose Valerio MD [Primary Care Provider] - Time of Disposition: 19:12 Medical Decision Making - Dayne Inquiry Pt receiving controlled substance: No Vital Signs: 05/05/22 17:44 05/05/22 18:05 05/05/22 18:56 Temperature 98.5 F 98.5 F 98.5 F Temperature Source Oral Oral Pulse Rate 110 H Pulse Rate [Radial] 110 H 110 H Respiratory Rate 20 20 20 Blood Pressure 114/67 Blood Pressure [Right Arm] 114/67 114/67 Blood Pressure Mean [Right Arm] 82 82 Blood Pressure Source [Right Arm] Automatic Cuff Automatic Cuff Blood Pressure Position [Right Arm] Sitting Sitting 02 Sat by Pulse Oximetry 98 98 Oxygen Delivery Method Room Air Room Air - Lab Data Lab Results 05/05/22 18:05: Urine Color Yellow, Urine Appearance Cloudy, Urine pH 6.5, Ur Specific Reader 1.030, Urine Protein 1+, Urine Glucose (UA) Negative, Urine Ketones Negative, Urine Blood Trace, Urine Nitrate Positive A, Urine Bilirubin Negative, Urine Urobilinogen 0.2, Ur Leukocyte Esterase Negative [facility] [place] General Chief complaint: Urgent [facility] Stated complaint: AO 05/05/22 1726 left thumb laceration Time Seen by Provider: 05/05/22 18:38 Mode of Arrival: Ambulatory Source of Information: Patient Limitations: No Limitations Description of Symptoms (Recalled from Triage Doc. by RN): PATIENT C/O LACERATION TO LEFT THUMB WHILE CUTTING A TOMATO. PATIENT IS ALSO REQUESTING TO BE TESTED FOR UTI HEENT Symptoms (Recalled from RN notes): No Resp Symptoms (Recalled from RN notes): No Skin Symptoms (Recalled from RN notes): No MS Symptoms (Recalled from RN notes): Yes Functional Status (Recalled from RN notes): WNL - History of Present Illness Provider Complaint: 37 yr old female presnets for laceration to left thumb and burning when voiding. pt states she cut her finger cutting up tomatoes. pt states her uti symptoms has been going on for a week and now urine has a odor - Related Data Previous Rx's Medication Instructions Recorded ondansetron HCL [Ondansetron 4mg 4 mg PO Q6 PRN #12 tab 12/17/21 tab*] bupropion HCl 150 mg tablet,12 hr See Rx Instructions .ROUTE 03/22/22 sustained-release .COMPLEX #60 tab metformin 500 mg tablet See Rx Instructions .ROUTE 03/22/22 .COMPLEX #60 tab que
[2022-05-05 18:56] VITALS: BP 114/67; PULSE 110; RESP 20; TEMP 36.9; O2SAT 98
== END 2022-05-05 19:20 | disposition home or self-care (01) ==
LOC: ER 17:44 → UTC 17:45
PROVIDERS: Emergency Provider Nurse Practitioner Family; PCP Emergency Medicine
DX: S61.012A Laceration without foreign body of left thumb without damage to nail, initial encounter (principal); N30.01 Acute cystitis with hematuria; W26.0XXA Contact with knife, initial encounter; Y93.G1 Activity, food preparation and clean up
CPT/HCPCS: 12001; 81003; 99212; G0463

== ENCOUNTER 2022-05-07 09:56 | Emergency (ER) | payer MEDICAID, SELFPAY ==
[2022-05-07 10:12] VITALS: BP 100/68; PULSE 88; RESP 16; O2SAT 99; BMI 32.4
[2022-05-07 10:35] VITALS: BP 100/68; PULSE 88; RESP 16; TEMP 36.7; O2SAT 99; BMI 32.5
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
[2022-05-07 10:57] VITALS: BP 100/68; PULSE 88; RESP 16; TEMP 36.7; O2SAT 99
== END 2022-05-07 11:18 | disposition home or self-care (01) ==
PROVIDERS: Emergency Provider Nurse Practitioner Family; PCP Emergency Medicine
DX: S61.012A Laceration without foreign body of left thumb without damage to nail, initial encounter (principal); Z87.891 Personal history of nicotine dependence
CPT/HCPCS: 99212; G0463

== ENCOUNTER → 2022-06-04 08:58 | Outpatient (CLI) | payer MEDICAID, SELFPAY ==
--- NOTE | 2022-06-04 09:01 | XR_ITS ---
FINAL REPORT CLINICAL HISTORY: pain FINDINGS: LEFT FOOT Three views of the left foot demonstrate no acute fracture or dislocation. The visualized joint spaces are normally aligned. There is a small Stephanie's deformity. There is a small plantar spur. The soft tissues are unremarkable. IMPRESSION: No acute bony abnormality. Reviewed, Interpreted and Dictated by Ag Isabel MD Transcribed by Blessing Scott Authenticated and [facility]
--- NOTE | 2022-06-04 09:01 | XR_ITS ---
FINAL REPORT CLINICAL HISTORY: pain FINDINGS: RIGHT FOOT Three views of the right foot demonstrate no acute fracture or dislocation. The visualized joint spaces are normally aligned. There is a small Stephanie's deformity. There is a small plantar spur. The soft tissues are unremarkable. IMPRESSION: No acute bony abnormality. Reviewed, Interpreted and Dictated by Ag Isabel MD Transcribed by Blessing Scott Authenticated and [facility]
== END ==
PROVIDERS: PCP Emergency Medicine; Visit Provider Podiatrist
DX: M79.671 Pain in right foot (principal); M79.672 Pain in left foot
CPT/HCPCS: 73630

== ENCOUNTER 2022-06-13 19:12 | Emergency (ER) | payer MEDICAID, SELFPAY ==
[2022-06-13] VITALS (9 sets, daily range): BP systolic 106–127; BP diastolic 64–89; PULSE 71–102; RESP 16; TEMP 36.4–36.6; O2SAT 98–100; BMI 32.9
--- NOTE | 2022-06-13 19:38 | ECG_ITS ---
APPROVED REPORT Exam: Resting ECG HR:87 bpm ECG Measurements Heart Rate 87 AXES DC 141 P 64 QRSd 94 QRS 56 QT 374 T 57 QTc 419 Conclusion SINUS RHYTHM NORMAL ECG UNCONFIRMED REPORT Electronically signed by : Everett Anguiano MD 06/14/2022 15:56:43
--- NOTE | 2022-06-13 19:46 | CT_ITS ---
PROCEDURE INFORMATION: Exam: CT Head Without Contrast Exam date and time: 06/13/2022 8:12 PM Age: 37 years old Clinical indication: Syncope and collapse; Patient HX: Syncopal episode while at work. Ate a candy bar and felt better. TECHNIQUE: Imaging protocol: Computed tomography of the head without contrast. Radiation optimization: All CT scans at this facility use at least one of these dose optimization techniques: automated exposure control; mA and/or kV adjustment per patient size (includes targeted exams where dose is matched to clinical indication); or iterative reconstruction. COMPARISON: HEADWO CT head/brain wo con 11/15/2017 1:53 PM FINDINGS: Brain: Normal. No hemorrhage. Unremarkable white matter. No mass effect. Cerebral ventricles: No ventriculomegaly. Paranasal sinuses: Visualized sinuses are unremarkable. No fluid levels. Mastoid air cells: Visualized mastoid air cells are well aerated. Bones/joints: Unremarkable. No acute fracture. Soft tissues: Unremarkable. IMPRESSION: No acute intracranial abnormality.
[2022-06-13 19:54] LABS: Chloride 97 mmol/L (98-107); Potassium 4.2 mmoL/L (3.5-5.1); Sodium 138 mmol/L (136-145)
[2022-06-13 19:57] LABS: Anion Gap 17.2 mEq/L (5-15); Blood Urea Nitrogen 12 mg/dl (7-17); Calcium 9.5 mg/dl (8.4-10.2); Carbon Dioxide 28 mmol/L (22.0-30.0); Creatinine Clearance Estimated 131 mL/min (50-200); Estimated Glomerular Filt Rate 82 ml/min (>60); GFR (African American) 99 ML/MIN (>60); Glucose 102 mg/dl (74-100)
[2022-06-13 20:03] LABS: Basophils # 0.1 K/mm3 (0-0.2); Basophils % 0.7 % (0.1-2.0); Eosinophils # 0.1 K/mm3 (0.0-0.4); Eosinophils % 0.6 % (0.1-12.0); Hematocrit 47.4 % (37.0-47.0); Hemoglobin 15.5 g/dL (12.2-16.2); Lymphocytes # 1.5 K/mm3 (0.7-4.5); Lymphocytes % 16.7 % (10-50); Mean Corpuscular HGB Conc 32.8 g/dL (31.8-35.4); Mean Corpuscular Hemoglobin 29.6 pg (27.0-31.2); Mean Corpuscular Volume 90.2 fl (81-99); Mean Platelet Volume 7.3 fl (7.4-10.4); Monocytes # 0.3 K/mm3 (0.1-1.0); Monocytes % 3.7 % (1.7-9.3); Neutrophils # 7.1 K/mm3 (1.8-7.8); Neutrophils % 78.3 % (37.0-80.0); Platelet Count 341 K/mm3 (142-424); Red Blood Count 5.25 M/mm3 (4.20-5.40); Red Cell Distribution Width 13.2 % (11.5-17.5); White Blood Count 9.1 K/mm3 (4.8-10.8)
[2022-06-13 20:04] LABS: HCG Qualitative, Serum Negative (Negative)
[2022-06-13 20:11] LABS: Troponin I < 0.01 ng/ml (0.00-0.034)
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
[2022-06-13 21:24] LABS: Microscopic, Urine URINE MICROSCOPIC (MICROSCOPIC)
[2022-06-13 21:27] LABS: Appearance,Urine CLOUDY (Clear); Bilirubin,Urine Negative (Negative); Blood, Urine TRACE-I (Negative); Color,Urine YELLOW (Yellow); Glucose,Urine (UA) Negative (Negative); Ketones,Urine Negative (Negative); Leukocyte Esterase,Urine 3+ (Negative); Nitrate,Urine Negative (Negative); Protein,Urine 1+ (Negative); Urobilinogen,Urine 0.2 EU/dl (0.2)
[2022-06-13 21:40] LABS: Barbiturates Screen,Urine Negative ng/ml (<200)
[2022-06-13 21:41] LABS: Bacteria,Urine 4+ /lpf; Benzodiazepines Screen,Urine Negative ng/ml (<200); Squamous Epithelial Cell,Urine 20-50 #/hpf (0-5); WBC,Urine 50-100 #/hpf (0-3)
--- NOTE | 2022-06-13 21:41 | PC.NURSE ---
Pt updated on POC. No needs or complaints voiced.
[2022-06-13 21:42] LABS: Cocaine Screen,Urine Negative ng/ml (<300); Methadone Screen,Urine Negative ng/ml (<300)
[2022-06-13 21:43] LABS: Cannabinoid Screen,Urine Negative ng/ml (<50); Opiate Screen,Urine Negative ng/ml (<300)
[2022-06-13 21:44] LABS: Phencyclidine Screen,Urine Negative ng/ml (<25)
--- NOTE | 2022-06-13 22:08 | PC.NURSE ---
in room with Dr. Valerio while he discussed drug screen results with patient
[2022-06-14 00:15] LABS: POC Glucose,Bedside 101 (70-110)
[2022-06-19 02:12] LABS: Amphetamine Positive (.); Amphetamine (GC/MS) >3000 ng/mL (Cutoff=500); Amphetamines Positive (.); Methamphetamine Positive (.); Methamphetamine (GC/MS) >3000 ng/mL (Cutoff=500)
== END 2022-06-14 00:02 | disposition home or self-care (01) ==
PROVIDERS: Emergency Provider Emergency Medicine; PCP Emergency Medicine
DX: N39.0 Urinary tract infection, site not specified (principal); R55 Syncope and collapse; R82.5 Elevated urine levels of drugs, medicaments and biological substances; Z79.84 Long term (current) use of oral hypoglycemic drugs; Z79.899 Other long term (current) drug therapy; Z88.6 Allergy status to analgesic agent; Z87.891 Personal history of nicotine dependence; E11.9 Type 2 diabetes mellitus without complications; F41.9 Anxiety disorder, unspecified; B19.20 Unspecified viral hepatitis C without hepatic coma
CPT/HCPCS: 70450; 80048; 80305; 80324; 81001; 82962; 84484; 84703; 85025; 87086; 87088; 87186; 93005; 96365; 99285

== ENCOUNTER → 2022-06-18 15:52 | Outpatient (CLI) | payer MEDICAID, SELFPAY ==
[2022-06-18 15:15] LABS: Amphetamine/Metha Screen,Urine Negative ng/ml (<1000)
[2022-06-18 15:17] LABS: Barbiturates Screen,Urine Negative ng/ml (<200)
[2022-06-18 15:18] LABS: Benzodiazepines Screen,Urine Negative ng/ml (<200); Cannabinoid Screen,Urine Negative ng/ml (<50)
[2022-06-18 15:19] LABS: Cocaine Screen,Urine Negative ng/ml (<300)
[2022-06-18 15:20] LABS: Methadone Screen,Urine Negative ng/ml (<300); Opiate Screen,Urine Negative ng/ml (<300)
[2022-06-18 15:21] LABS: Phencyclidine Screen,Urine Negative ng/ml (<25)
== END ==
PROVIDERS: PCP Emergency Medicine; Visit Provider Emergency Medicine
DX: Z79.899 Other long term (current) drug therapy (principal)
CPT/HCPCS: 80305

== ENCOUNTER 2022-07-03 16:56 | Emergency (ER) | payer MEDICAID, SELFPAY ==
[2022-07-03 19:45] VITALS: BP 113/75; PULSE 92; RESP 18; TEMP 36.4; O2SAT 99; BMI 29.2
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
[2022-07-03 21:00] VITALS: BP 116/65; PULSE 78; RESP 18; TEMP 36.7; O2SAT 96
[2022-07-03 21:17] LABS: Microscopic, Urine URINE MICROSCOPIC (MICROSCOPIC)
[2022-07-03 21:35] LABS: Bilirubin,Urine Negative (Negative); Blood, Urine 3+ (Negative); Glucose,Urine (UA) Negative (Negative); Ketones,Urine Negative (Negative); Leukocyte Esterase,Urine Negative (Negative); Nitrate,Urine Negative (Negative); Protein,Urine 2+ (Negative); Urobilinogen,Urine 0.2 EU/dl (0.2)
[2022-07-03 21:41] LABS: Appearance,Urine Cloudy (Clear); Color,Urine Amber (Yellow)
[2022-07-03 21:47] LABS: Bacteria,Urine 3+ /lpf; RBC,Urine 50-100 #/hpf (0-3); WBC,Urine Occasional #/hpf (0-3)
== END 2022-07-03 21:30 | disposition home or self-care (01) ==
PROVIDERS: Emergency Provider Emergency Medicine; PCP Emergency Medicine
DX: J02.9 Acute pharyngitis, unspecified (principal); M79.672 Pain in left foot; R68.84 Jaw pain; S00.501A Unspecified superficial injury of lip, initial encounter; R49.0 Dysphonia; Z79.84 Long term (current) use of oral hypoglycemic drugs; Z79.899 Other long term (current) drug therapy; Z88.5 Allergy status to narcotic agent; Z88.6 Allergy status to analgesic agent; Y04.2XXA Assault by strike against or bumped into by another person, initial encounter; M79.671 Pain in right foot; Z87.440 Personal history of urinary (tract) infections
CPT/HCPCS: 70486; 70490; 71046; 81001; 87086; 99285

== ENCOUNTER 2022-07-29 18:08 | Emergency (ER) | payer MEDICAID, SELFPAY ==
[2022-07-29 20:59] LABS: Microscopic, Urine URINE MICROSCOPIC (MICROSCOPIC)
[2022-07-29 21:05] LABS: Appearance,Urine SL CLOUDY (Clear); Bilirubin,Urine Negative (Negative); Blood, Urine Negative (Negative); Color,Urine YELLOW (Yellow); Glucose,Urine (UA) Negative (Negative); Ketones,Urine Negative (Negative); Leukocyte Esterase,Urine Negative (Negative); Nitrate,Urine Negative (Negative); Protein,Urine 1+ (Negative); Specific Gravity, Urine 1.015 (1.005-1.030); Urobilinogen,Urine 0.2 EU/dl (0.2)
[2022-07-29 21:16] LABS: Amphetamine/Metha Screen,Urine Negative ng/ml (<1000); Barbiturates Screen,Urine Negative ng/ml (<200)
[2022-07-29 21:17] LABS: Benzodiazepines Screen,Urine Negative ng/ml (<200)
[2022-07-29 21:18] LABS: Cannabinoid Screen,Urine Negative ng/ml (<50); Cocaine Screen,Urine Negative ng/ml (<300)
[2022-07-29 21:19] LABS: Methadone Screen,Urine Negative ng/ml (<300)
[2022-07-29 21:20] LABS: Opiate Screen,Urine Negative ng/ml (<300); Phencyclidine Screen,Urine Negative ng/ml (<25)
[2022-07-29 21:21] LABS: Bacteria,Urine Trace /lpf
[2022-07-29 21:26] VITALS: BP 124/80; PULSE 76; RESP 16; TEMP 36.3; O2SAT 97; BMI 32.9
--- NOTE | 2022-07-29 21:52 | PC.NURSE ---
Dr. Valerio at
[2022-07-29 22:34] LABS: Urine Pregnancy, HCG Qual. Negative (Negative)
[2022-07-29 22:38] LABS: Basophils # 0.1 K/mm3 (0-0.2); Basophils % 1.5 % (0.1-2.0); Eosinophils # 0.1 K/mm3 (0.0-0.4); Eosinophils % 1.9 % (0.1-12.0); Hematocrit 45.4 % (37.0-47.0); Hemoglobin 14.8 g/dL (12.2-16.2); Lymphocytes # 2.2 K/mm3 (0.7-4.5); Lymphocytes % 35.8 % (10-50); Mean Corpuscular HGB Conc 32.7 g/dL (31.8-35.4); Mean Corpuscular Hemoglobin 29.8 pg (27.0-31.2); Mean Corpuscular Volume 91.2 fl (81-99); Monocytes # 0.2 K/mm3 (0.1-1.0); Monocytes % 3.4 % (1.7-9.3); Neutrophils # 3.5 K/mm3 (1.8-7.8); Neutrophils % 57.5 % (37.0-80.0); Platelet Count 343 K/mm3 (142-424); Red Blood Count 4.97 M/mm3 (4.20-5.40); Red Cell Distribution Width 13.5 % (11.5-17.5); White Blood Count 6.1 K/mm3 (4.8-10.8)
[2022-07-29 22:43] LABS: Alanine Aminotransferase 132 U/L (12-78); Albumin Level 5.3 g/dl (3.5-5.0); Albumin/Globulin Ratio 1.3 (1.1-1.8); Alkaline Phosphatase 257 U/L (38-126); Aspartate Amino Transferase 85 U/L (14-36); Bilirubin,Total 0.5 mg/dl (0.2-1.3); Blood Urea Nitrogen 14 mg/dl (7-17); Calcium 10.4 mg/dl (8.4-10.2); Carbon Dioxide 24 mmol/L (22.0-30.0); Chloride 102 mmol/L (98-107); Creatinine Clearance Estimated 131 mL/min (50-200); Estimated Glomerular Filt Rate 82 ml/min (>60); GFR (African American) 99 ML/MIN (>60); Globulin 4.2 g/dL (1.3-3.2); Glucose 89 mg/dl (74-100); Sodium 141 mmol/L (136-145); Total Protein,Serum 9.5 g/dl (6.3-8.2)
[2022-07-29 22:49] LABS: C-Reactive Protein 7.7 mg/L (0-4)
--- NOTE | 2022-07-29 23:01 | HMH.EDUROGF ---
Discharge Plan Disposition Patient Disposition: Home, Self-Care Prescriptions Prescriptions: New clindamycin HCl 300 mg capsule 300 mg PO TID Qty: 30 0RF cephalexin [cephalexin] 500 mg capsule 500 mg PO TID Qty: 30 0RF No Action oxycodone-acetaminophen [Percocet] 5-325 mg tablet 1 tab PO .qd Qty: 20 0RF gabapentin 300 mg capsule 300 mg PO TID Qty: 90 0RF clonazepam [Klonopin] 1 mg tablet 1 mg PO TID Qty: 90 0RF meloxicam 7.5 mg tablet 7.5 mg PO ONCE Qty: 30 2RF metformin 500 mg tablet See Rx Instructions .ROUTE .COMPLEX Rx Instructions: TAKE ONE TABLET BY MOUTH TWICE DAILY bupropion HCl 150 mg tablet sustained-release 12 hr See Rx Instructions .ROUTE .COMPLEX Rx Instructions: TAKE ONE TABLET BY MOUTH TWICE DAILY quetiapine 100 mg tablet See Rx Instructions .ROUTE .COMPLEX Rx Instructions: TAKE ONE TABLET BY MOUTH EVERY DAY AT BEDTIME Referrals Follow up/Referrals: Mikhail Avila MD [Primary Care Provider] - See instructions Clinical Impressions Clinical Impression: Vaginal foreign object, Vaginitis Instructions Patient Instructions: DI for Foreign Body in Vagina-Adult Discharge ED Provider: Jose Valerio Female Urogenital HPI General Chief complaint: Urogenital-Female Stated complaint: poss UTI Time Seen by Provider: 07/29/22 23:01 Mode of Arrival: Ambulatory Source of Information: Patient, Significant Other and Medical Record Limitations: No Limitations Description of Symptoms (Recalled from ER Triage Doc. by RN): pt reports possible UTI. pt is also concerned if thats not it maybe she has part of a tampon lost inside her. pt claims a strange smell sometimes but thatshe isnt sure if its uti or sti or something from the tampon History of Present Illness HPI Narrative: possible uti vs retained tampon with vaginal d/c and has smell Complaint: vaginal discharge Onset (ago): day(s) Severity: moderate Urinary Symptoms: dysuria Vaginal discharge: white Sexual activity: yes : No Associated symptoms: vaginal discharge Related Data Home Medications Medication Instructions Recorded Confirmed bupropion HCl 150 mg tablet,12 hr See Rx Instructions .Route 06/13/22 07/26/22 sustained-release .COMPLEX mood metformin 500 mg tablet See Rx Instructions .Route 06/13/22 07/26/22 .COMPLEX . quetiapine 100 mg tablet See Rx Instructions .Route 06/13/22 07/26/22 .COMPLEX sleep Previous Rx's Medication Instructions Recorded meloxicam 7.5 mg tablet 7.5 mg PO ONCE pain #30 tabs 06/25/22 clonazepam 1 mg tablet (Klonopin) 1 mg PO TID Anxiety #90 tabs 07/26/22 gabapentin 300 mg capsule 300 mg PO TID neuropathy #90 caps 07/26/22 oxycodone-acetaminophen 5 mg-325 1 tab PO .qd foot pain #20 tabs 07/26/22 mg tablet (Percocet) cephalexin 500 mg capsule 500 mg PO TID #30 caps 07/29/22 clindamycin HCl 300 mg capsule 300 mg PO TID #30 caps 07/29/22 Allergies Allergy/AdvReac Type Severity Reaction Status Date / Time hydrocodone [HYDROCODONE] Allergy Unknown Verified 07/26/22 08:59 [facility] Medical History Foot pain, bilateral Social History Smoking Status: Never smoker alcohol intake: never substance use type: former substance user, marijuana and heroin current occupational status: unemployed Travel in the last 8 weeks: None household members: family housing: house ROS Obtained: Yes All systems reviewed & no additional complaints except as documented Physical Exam General General appearance: alert Head Head exam: normocephalic Eye Eye exam: Present PERRL and EOMI ENT ENT exam: Present mucous membranes moist Neck Neck exam: Present trachea midline Respiratory Respiratory exam: Absent respiratory distress Cardiovascular Cardiovascular exam: Present regular rate Abdominal Exam Abdomin
[2022-07-29 23:03] LABS: Erythrocyte Sedimentation Rate 21 mm/hr (0-20)
[2022-07-29 23:20] VITALS: BP 109/77; PULSE 74; RESP 16; TEMP 36.6; O2SAT 98
[2022-07-31 22:17] LABS: Neisseria gonorrhoeae, NAA Negative (Negative)
== END 2022-07-29 23:30 | disposition home or self-care (01) ==
PROVIDERS: Emergency Provider Emergency Medicine; PCP Family Medicine
DX: N76.0 Acute vaginitis (principal); T19.2XXA Foreign body in vulva and vagina, initial encounter; Z79.01 Long term (current) use of anticoagulants; Z79.899 Other long term (current) drug therapy; Z88.6 Allergy status to analgesic agent
CPT/HCPCS: 80053; 80305; 81001; 81025; 85025; 85651; 86140; 87070; 87205; 87210; 87491; 87591; 99283

== ENCOUNTER → 2022-11-27 23:52 | Outpatient (CLI) | payer MEDICAID, SELFPAY ==
[2022-11-27 19:15] LABS: Amphetamine/Metha Screen,Urine Negative ng/ml (<1000); Benzodiazepines Screen,Urine Negative ng/ml (<200)
[2022-11-27 19:16] LABS: Barbiturates Screen,Urine Negative ng/ml (<200)
[2022-11-27 19:17] LABS: Cannabinoid Screen,Urine Negative ng/ml (<50); Cocaine Screen,Urine Negative ng/ml (<300)
[2022-11-27 19:18] LABS: Methadone Screen,Urine Negative ng/ml (<300)
[2022-11-27 19:20] LABS: Opiate Screen,Urine Negative ng/ml (<300); Phencyclidine Screen,Urine Negative ng/ml (<25)
== END ==
PROVIDERS: PCP Family Medicine; Visit Provider Family Medicine
DX: G89.29 Other chronic pain (principal)
CPT/HCPCS: 80305

== ENCOUNTER → 2022-12-11 13:15 | Outpatient (CLI) | payer MEDICAID, SELFPAY ==
[2022-12-11 23:42] LABS: Amphetamine/Metha Screen,Urine Positive ng/ml (<1000); Barbiturates Screen,Urine Negative ng/ml (<200); Benzodiazepines Screen,Urine Positive ng/ml (<200); Cannabinoid Screen,Urine Negative ng/ml (<50); Cocaine Screen,Urine Negative ng/ml (<300); Methadone Screen,Urine Negative ng/ml (<300); Opiate Screen,Urine Negative ng/ml (<300); Phencyclidine Screen,Urine Negative ng/ml (<25)
== END ==
PROVIDERS: PCP Family Medicine; Visit Provider Family Medicine
DX: R89.2 Abnormal level of other drugs, medicaments and biological substances in specimens from other organs, systems and tissues (principal)
CPT/HCPCS: 80305

== ENCOUNTER 2023-02-09 16:35 | Emergency (ER) | payer MEDICAID, SELFPAY ==
[2023-02-09 16:37] VITALS: BP 117/68; PULSE 108; RESP 17; TEMP 36.7; O2SAT 98; BMI 38.9
--- NOTE | 2023-02-09 16:41 | HMH.EDGENADL ---
Discharge Plan Disposition Patient Disposition: Home, Self-Care Prescriptions Prescriptions: New ibuprofen 800 mg tablet 800 mg PO TID PRN (Reason: pain) 7 Days Qty: 20 0RF cyclobenzaprine 5 mg tablet 5 mg PO TID PRN (Reason: muscle spasm) 5 Days Qty: 15 0RF No Action meloxicam 7.5 mg tablet 7.5 mg PO ONCE Qty: 90 3RF naproxen [Naprosyn] 500 mg tablet 500 mg PO BID Qty: 60 3RF metformin 500 mg tablet See Rx Instructions .ROUTE .COMPLEX Qty: 60 10RF Rx Instructions: TAKE ONE TABLET BY MOUTH TWICE DAILY furosemide [Lasix] 20 mg tablet 20 mg PO DAILY Qty: 90 3RF bupropion HCl 150 mg tablet sustained-release 12 hr See Rx Instructions .ROUTE .COMPLEX Rx Instructions: TAKE ONE TABLET BY MOUTH TWICE DAILY Activity Restrictions/Add. Instructions Additional Instructions/Restrictions: You have clinical evidence of bilateral heel spurs and plantar fasciitis that is associated with that as well as Achilles tendinopathy. 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 Additionally losing weight and going to [facility] to get orthotics and appropriately supportive shoes will be very helpful as well. Please keep your appointments as previously instructed. Return to the emergency part with worsening symptoms. Clinical Impressions Clinical Impression: Bilateral foot pain, Bilateral plantar fasciitis, Insertional Achilles tendinopathy, Heel spur Discharge ED Provider: [facility] General Adult HPI General Chief complaint: PAIN Stated complaint: Pain and swelling in both feet Time Seen by Provider: 02/09/23 16:41 History of Present Illness HPI narrative: Patient is a 37-year-old female presenting with bilateral foot pain. She states that this has been chronic and intermittent but has significantly worsened over the last few days. She states she works at [employer] on second shift and is on her feet long periods at a time when she is having severe pain at the posterior aspect in the anterior medial aspect of bilateral heels. She states she knows she has heel spurs and she is followed by Dr. Uriostegui. She also states that she recently stopped all medications including multiple controlled substances after she discontinued being followed by Dr. Valerio and is now seeing a new primary care doctor. She states that there is a lot going on my life . She is here tonight because she states the pain is unbearable. She took Klonopin and Wellbutrin prior to arrival [place]. Patient states that she does not have good shoes and has not sought orthotics or specialty shoes for her chronic foot pain. Related Data Home Medications Medication Instructions Recorded Confirmed bupropion HCl 150 mg tablet,12 hr See Rx Instructions .Route 06/13/22 12/11/22 sustained-release .COMPLEX mood Previous Rx's Medication Instructions Recorded meloxicam 7.5 mg tablet 7.5 mg PO ONCE pain #90 tabs 08/23/22 naproxen 500 mg tablet (Naprosyn) 500 mg PO BID #60 tabs 11/27/22 furosemide 20 mg tablet (Lasix) 20 mg PO DAILY #90 tabs 12/04/22 metformin 500 mg tablet See Rx Instructions .Route 12/11/22 .COMPLEX . #60 tabs cyclobenzaprine 5 mg tablet 5 mg PO TID PRN muscle spasm 5 02/09/23 days #15 tabs ibuprofen 800 mg tablet 800 mg PO TID PRN pain 7 days #20 02/09/23 tabs Allergies Allergy/AdvReac Type Severity Reaction Status Date / Time hydrocodone [HYDROCODONE] Allergy Unknown Verified 02/09/23 16:53 [facility] Disclaimer: The information contained in this section may have been updated after the patient was seen, as this information can be updated by other users. Medical History Foot pain, bilateral Social History (Reviewed 12/11/22
--- NOTE | 2023-02-09 16:46 | XR_ITS ---
PROCEDURE INFORMATION: Exam: XR Left Foot Exam date and time: 02/09/2023 4:44 PM Age: 37 years old Clinical indication: Pain; Foot; Bilateral; Additional info: Heel pain, non traumatic TECHNIQUE: Imaging protocol: Radiologic exam of the left foot. Views: 3 or more views. Total images: 3 COMPARISON: CR XR FOOT WT BEARING LT 3V 06/04/2022 9:14 AM FINDINGS: Bones/joints: No evidence of acute fracture or dislocation. Calcaneal spurs are present. Soft tissues: Soft tissues are within normal limits. IMPRESSION: 1. No evidence of acute fracture or dislocation. 2. Calcaneal spurs are present.
--- NOTE | 2023-02-09 16:46 | XR_ITS ---
PROCEDURE INFORMATION: Exam: XR Right Foot Exam date and time: 02/09/2023 4:43 PM Age: 37 years old Clinical indication: Pain; Foot; Bilateral; Additional info: Heel pain, non traumatic TECHNIQUE: Imaging protocol: Radiologic exam of the right foot. Views: 3 or more views. Total images: 3 COMPARISON: CR XR FOOT WT BEARING RT 3V 06/04/2022 9:14 AM FINDINGS: Bones/joints: No evidence of acute fracture or dislocation. Calcaneal spurs are present. Soft tissues: Soft tissues are within normal limits. IMPRESSION: 1. No evidence of acute fracture or dislocation. 2. Calcaneal spurs are present.
[2023-02-09 17:32] VITALS: BP 118/76; PULSE 104; RESP 18; TEMP 36.7; O2SAT 98
== END 2023-02-09 17:38 | disposition home or self-care (01) ==
PROVIDERS: Emergency Provider Student in an Organized Health Care Education/Training Program
DX: M72.2 Plantar fascial fibromatosis (principal); M67.80 Other specified disorders of synovium and tendon, unspecified site
CPT/HCPCS: 73630; 99284

== ENCOUNTER 2023-02-20 01:15 | Emergency (ER) | payer MEDICAID, SELFPAY ==
[2023-02-20 01:17] VITALS: BP 131/88; PULSE 86; RESP 18; TEMP 36.4; O2SAT 98; BMI 38.7
--- NOTE | 2023-02-20 01:59 | HMH.EDGENADL ---
Discharge Plan Disposition Patient Disposition: Home, Self-Care Prescriptions Prescriptions: New ketorolac 10 mg tablet 10 mg PO Q8H PRN (Reason: pain) 2 Days Qty: 10 0RF No Action meloxicam 7.5 mg tablet 7.5 mg PO ONCE Qty: 90 3RF naproxen [Naprosyn] 500 mg tablet 500 mg PO BID Qty: 60 3RF metformin 500 mg tablet See Rx Instructions .ROUTE .COMPLEX Qty: 60 10RF Rx Instructions: TAKE ONE TABLET BY MOUTH TWICE DAILY furosemide [Lasix] 20 mg tablet 20 mg PO DAILY Qty: 90 3RF bupropion HCl 150 mg tablet sustained-release 12 hr See Rx Instructions .ROUTE .COMPLEX Rx Instructions: TAKE ONE TABLET BY MOUTH TWICE DAILY ibuprofen 800 mg tablet 800 mg PO TID PRN (Reason: pain) 7 Days Qty: 20 0RF cyclobenzaprine 5 mg tablet 5 mg PO TID PRN (Reason: muscle spasm) 5 Days Qty: 15 0RF Referrals Follow up/Referrals: Provider,Referral, MD [Primary Care Provider] - See instructions Activity Restrictions/Add. Instructions Additional Instructions/Restrictions: please stop all nsaif while on ketorolac Clinical Impressions Clinical Impression: Bursitis disorder Instructions Patient Instructions: DI for Bursitis Discharge ED Provider: Teodoro (ED)Jose General Adult HPI General Chief complaint: PAIN Stated complaint: Bilateral foot pain post injections Time Seen by Provider: 02/20/23 01:40 Mode of Arrival: Ambulatory Source of Information: Patient and Medical Record Limitations: No Limitations Description of Symptoms (Recalled from ER Triage Doc. by RN): pt reports bilat leg pain and swelling after getting injections in her heals and ankles at Dr shaw office yesterday. thept also reports that she hadworked 13 hours the previous night. History of Present Illness HPI narrative: pt with bilat heel pain which has been ongoing has seen ed - note reviewed and dr clayton - note reviewed with injections given - pt reports pain increased after working Onset (ago): day(s) Location: lower extremity Severity: moderate Consistency: intermittent Associated symptoms: denies other symptoms Related Data Home Medications Medication Instructions Recorded Confirmed bupropion HCl 150 mg tablet,12 hr See Rx Instructions .Route 06/13/22 02/18/23 sustained-release .COMPLEX mood Previous Rx's Medication Instructions Recorded meloxicam 7.5 mg tablet 7.5 mg PO ONCE pain #90 tabs 08/23/22 naproxen 500 mg tablet (Naprosyn) 500 mg PO BID #60 tabs 11/27/22 furosemide 20 mg tablet (Lasix) 20 mg PO DAILY #90 tabs 12/04/22 metformin 500 mg tablet See Rx Instructions .Route 12/11/22 .COMPLEX . #60 tabs cyclobenzaprine 5 mg tablet 5 mg PO TID PRN muscle spasm 5 02/09/23 days #15 tabs ibuprofen 800 mg tablet 800 mg PO TID PRN pain 7 days #20 02/09/23 tabs ketorolac 10 mg tablet 10 mg PO Q8H PRN pain 2 days #10 02/20/23 tabs Allergies Allergy/AdvReac Type Severity Reaction Status Date / Time hydrocodone [HYDROCODONE] Allergy Unknown Verified 02/18/23 10:31 [facility] Disclaimer: The information contained in this section may have been updated after the patient was seen, as this information can be updated by other users. Medical History Foot pain, bilateral Social History Smoking Status: Never smoker alcohol intake: never substance use type: former substance user, marijuana and heroin current occupational status: unemployed Travel in the last 8 weeks: None household members: family housing: house ROS Obtained: Yes All systems reviewed & no additional complaints except as documented Physical Exam General General appearance: alert Head Head exam: normocephalic Eye Eye exam: Present PERRL and EOMI ENT ENT exam: Present mucous membranes moist Neck Neck exam: Present trachea midline Respiratory Respiratory exam: Absent respiratory d
[2023-02-20 02:00] VITALS: BP 124/87; PULSE 85; O2SAT 97
[2023-02-20 02:46] VITALS: BP 129/73; PULSE 81; RESP 18; TEMP 36.4; O2SAT 97
== END 2023-02-20 02:49 | disposition home or self-care (01) ==
PROVIDERS: Emergency Provider Emergency Medicine
DX: M79.671 Pain in right foot (principal); M79.672 Pain in left foot; R22.43 Localized swelling, mass and lump, lower limb, bilateral; T50.905A Adverse effect of unspecified drugs, medicaments and biological substances, initial encounter
CPT/HCPCS: 96372; 99283; 99284

== ENCOUNTER 2023-04-10 16:01 | Emergency (ER) | payer MEDICAID, SELFPAY ==
--- NOTE | 2023-04-10 16:25 | HMH.EDGENADL ---
Discharge Plan Disposition Patient Disposition: Home, Self-Care Prescriptions Prescriptions: New dexamethasone 6 mg tablet 6 mg PO .every other day Qty: 4 0RF No Action meloxicam 7.5 mg tablet 7.5 mg PO ONCE Qty: 90 3RF naproxen [Naprosyn] 500 mg tablet 500 mg PO BID Qty: 60 3RF metformin 500 mg tablet See Rx Instructions .ROUTE .COMPLEX Qty: 60 10RF Rx Instructions: TAKE ONE TABLET BY MOUTH TWICE DAILY furosemide [Lasix] 20 mg tablet 20 mg PO DAILY Qty: 90 3RF bupropion HCl 150 mg tablet sustained-release 12 hr See Rx Instructions .ROUTE .COMPLEX Rx Instructions: TAKE ONE TABLET BY MOUTH TWICE DAILY ibuprofen 800 mg tablet 800 mg PO TID PRN (Reason: pain) 7 Days Qty: 20 0RF cyclobenzaprine 5 mg tablet 5 mg PO TID PRN (Reason: muscle spasm) 5 Days Qty: 15 0RF ketorolac 10 mg tablet 10 mg PO Q8H PRN (Reason: pain) 2 Days Qty: 10 0RF Referrals Follow up/Referrals: Provider,Referral, MD [Primary Care Provider] - See instructions Activity Restrictions/Add. Instructions Additional Instructions/Restrictions: Follow-up with podiatry. Be sure to tell them you are in the emergency department and are serious about getting your operations for your bilateral heels. Before surgery, discussed the work limitations afterward. Decadron every other day. Be sure to stay hydrated and eat plenty of food while taking this medication. As it can cause GI and kidney issues. Clinical Impressions Clinical Impression: Pain of both heels, Bone spur of foot Discharge ED Provider: Saul Tran General Adult HPI General Chief complaint: PAIN Stated complaint: leg pain,swelling Time Seen by Provider: 04/10/23 16:06 History of Present Illness HPI narrative: This is a 38-year-old female with history of chronic Achilles heel pain secondary to bone spurs, dependent lower extremity edema after long work days presenting with multiple complaints. Patient states I cannot half ass walk secondary to pain in her bilateral heels and right MTP joint. She states that at the end of days after standing on her feet for 12 to 14 hours, her legs are also swelling. Pain is severe, does not radiate. She states that she follows with podiatry who told her she needs surgery. Patient declined surgery multiple times. She also declined wearing compression stockings for multiple reasons. Denies fevers, chills, nausea, vomiting, redness or overlying skin changes from her baseline, trauma, or any other concerns. She states that her pain is getting worse, called her network programmer who told her to come to the ER for further evaluation. Related Data Home Medications Medication Instructions Recorded Confirmed bupropion HCl 150 mg tablet,12 hr See Rx Instructions .Route 06/13/22 02/18/23 sustained-release .COMPLEX mood Previous Rx's Medication Instructions Recorded meloxicam 7.5 mg tablet 7.5 mg PO ONCE pain #90 tabs 08/23/22 naproxen 500 mg tablet (Naprosyn) 500 mg PO BID #60 tabs 11/27/22 furosemide 20 mg tablet (Lasix) 20 mg PO DAILY #90 tabs 12/04/22 metformin 500 mg tablet See Rx Instructions .Route 12/11/22 .COMPLEX . #60 tabs cyclobenzaprine 5 mg tablet 5 mg PO TID PRN muscle spasm 5 02/09/23 days #15 tabs ibuprofen 800 mg tablet 800 mg PO TID PRN pain 7 days #20 02/09/23 tabs ketorolac 10 mg tablet 10 mg PO Q8H PRN pain 2 days #10 02/20/23 tabs dexamethasone 6 mg tablet 6 mg PO .every other day #4 tabs 04/10/23 Allergies Allergy/AdvReac Type Severity Reaction Status Date / Time hydrocodone [HYDROCODONE] Allergy Unknown Verified 02/18/23 10:31 [facility] Disclaimer: The information contained in this section may have been updated after the patient was seen, as this information can be updated by other users. Medical History Foot pain, bilateral Social History S
[2023-04-10 16:26] VITALS: BP 130/83; PULSE 98; RESP 20; TEMP 37; O2SAT 96; BMI 44.6
[2023-04-10 16:30] VITALS: BP 110/74; PULSE 88; O2SAT 97
[2023-04-10 16:57] LABS: Glucose,Random 93 mg/dL (74-100)
[2023-04-10 17:00] VITALS: BP 113/52; PULSE 82; O2SAT 99
[2023-04-10 17:30] VITALS: BP 129/93; PULSE 72; O2SAT 97
[2023-04-10 18:00] VITALS: BP 137/95; PULSE 80; O2SAT 98
[2023-04-10 18:22] VITALS: BP 119/66; PULSE 79; RESP 20; TEMP 37.1; O2SAT 96
== END 2023-04-10 18:26 | disposition home or self-care (01) ==
PROVIDERS: Emergency Provider Emergency Medicine
DX: M25.571 Pain in right ankle and joints of right foot (principal); M25.572 Pain in left ankle and joints of left foot
CPT/HCPCS: 82947; 96372; 96374; 96375; 99284

== ENCOUNTER → 2023-04-15 08:49 | Outpatient (CLI) | payer MEDICAID, SELFPAY ==
[2023-04-15 09:08] LABS: Basophils % 0.5 % (0.1-2.0); Eosinophils # 0.1 K/mm3 (0.0-0.4); Eosinophils % 1.6 % (0.1-12.0); Hematocrit 41.8 % (37.0-47.0); Hemoglobin 13.1 g/dL (12.2-16.2); Lymphocytes # 1.5 K/mm3 (0.7-4.5); Lymphocytes % 23.7 % (10-50); Mean Corpuscular HGB Conc 31.3 g/dL (31.8-35.4); Mean Corpuscular Hemoglobin 28.2 pg (27.0-31.2); Mean Platelet Volume 6.8 fl (7.4-10.4); Monocytes # 0.3 K/mm3 (0.1-1.0); Monocytes % 4.8 % (1.7-9.3); Neutrophils # 4.3 K/mm3 (1.8-7.8); Neutrophils % 69.4 % (37.0-80.0); Platelet Count 222 K/mm3 (142-424); Red Blood Count 4.65 M/mm3 (4.20-5.40); Red Cell Distribution Width 13.5 % (11.5-17.5); White Blood Count 6.1 K/mm3 (4.8-10.8)
[2023-04-15 10:00] LABS: Alanine Aminotransferase 189 U/L (12-78); Albumin Level 3.9 g/dl (3.5-5.0); Albumin/Globulin Ratio 1.4 (1.1-1.8); Alkaline Phosphatase 152 U/L (38-126); Anion Gap 9.6 mEq/L (5-15); Aspartate Amino Transferase 160 U/L (14-36); Bilirubin,Total 0.5 mg/dl (0.2-1.3); Blood Urea Nitrogen 14 mg/dl (7-17); Calcium 9.2 mg/dl (8.4-10.2); Carbon Dioxide 29 mmol/L (22.0-30.0); Chloride 106 mmol/L (98-107); Estimated Glomerular Filt Rate 81 ml/min (>60); GFR (African American) 98 ML/MIN (>60); Globulin 2.8 g/dL (1.3-3.2); Glucose 96 mg/dl (74-100); Potassium 4.6 mmoL/L (3.5-5.1); Sodium 140 mmol/L (136-145); Total Protein,Serum 6.7 g/dl (6.3-8.2); Uric Acid 6.1 mg/dl (2.5-6.2)
[2023-04-15 10:06] LABS: C-Reactive Protein 14.8 mg/L (0-4)
[2023-04-15 10:15] LABS: Hemoglobin A1C 5.1 % (4.0-6.0)
[2023-04-15 10:31] LABS: Thyroid Stimulating Hormone 2.33 uIU/mL (0.465-4.68)
[2023-04-15 11:07] LABS: Vitamin B12 603 pg/mL (239-931)
[2023-04-15 11:09] LABS: Folate 5.42 ng/mL
[2023-04-15 11:55] LABS: Erythrocyte Sedimentation Rate 23 mm/hr (0-20)
[2023-04-16 04:24] LABS: RA Latex Turbid. <10.0 IU/mL (<14.0)
[2023-04-16 16:19] LABS: Antinuclear Antibodies, IFA Negative (.)
[2023-04-28 15:57] LABS: 1,25 Dihydroxy Vitamin D 24 pg/mL (.); 1,25-Dihydroxy, Vitamin D-2 <10 pg/mL (.); 1,25-Dihydroxy, Vitamin D-3 24 pg/mL (.)
== END ==
PROVIDERS: Visit Provider Podiatrist
DX: R60.0 Localized edema (principal); M79.671 Pain in right foot; M79.672 Pain in left foot; E11.42 Type 2 diabetes mellitus with diabetic polyneuropathy; Z79.84 Long term (current) use of oral hypoglycemic drugs; Z79.899 Other long term (current) drug therapy; R79.82 Elevated C-reactive protein (CRP); E66.9 Obesity, unspecified; Z68.38 Body mass index [BMI] 38.0-38.9, adult
CPT/HCPCS: 36415; 80053; 82607; 82652; 82746; 83036; 84443; 84550; 85025; 85651; 86038; 86140; 86431

== ENCOUNTER → 2023-04-23 09:43 | Outpatient (CLI) | payer MEDICAID, SELFPAY ==
--- NOTE | 2023-04-23 | CA_ITS ---
FINAL REPORT TECHNIQUE: Grayscale and color Doppler ultrasound images with graded compression of the deep venous system were obtained from the groin to the calf veins bilaterally. CLINICAL HISTORY: EDEMA X 3 weeks no injury FINDINGS: The deep venous system is normal. There is no evidence of DVT. Flow and compressibility are normal. IMPRESSION: No evidence of left or right lower extremity DVT. Reviewed, Interpreted and Dictated by Rhett Johnston III, MD Transcribed by Evgeny Barnett Authenticated and [facility]
== END ==
PROVIDERS: Visit Provider Podiatrist
DX: R60.0 Localized edema (principal); M79.661 Pain in right lower leg; M79.662 Pain in left lower leg
CPT/HCPCS: 93970

== ENCOUNTER 2023-05-30 20:15 | Emergency (ER) | payer MEDICAID, SELFPAY ==
[2023-05-30 20:16] VITALS: BP 143/74; PULSE 100; RESP 20; TEMP 36.6; O2SAT 98; BMI 38.0
--- NOTE | 2023-05-30 20:53 | HMH.EDGENADL ---
Discharge Plan Disposition Patient Disposition: Home, Self-Care Condition: Good Prescriptions Prescriptions: New colchicine (gout) 0.6 mg tablet 0.6 mg PO BID Qty: 20 0RF allopurinol 100 mg tablet 100 mg PO DAILY Qty: 30 0RF No Action meloxicam 7.5 mg tablet 7.5 mg PO ONCE Qty: 90 3RF naproxen [Naprosyn] 500 mg tablet 500 mg PO BID Qty: 60 3RF metformin 500 mg tablet See Rx Instructions .ROUTE .COMPLEX Qty: 60 10RF Rx Instructions: TAKE ONE TABLET BY MOUTH TWICE DAILY indomethacin 50 mg capsule 50 mg PO Patient Comments: TAKE ONE (1) CAPSULE TWICE A DAY BY ORAL ROUTE AFTER MEALS FOR 14 DAYS. gabapentin 300 mg capsule 300 mg PO furosemide [Lasix] 20 mg tablet 20 mg PO DAILY Qty: 90 3RF bupropion HCl 150 mg tablet sustained-release 12 hr See Rx Instructions .ROUTE .COMPLEX Rx Instructions: TAKE ONE TABLET BY MOUTH TWICE DAILY ibuprofen 800 mg tablet 800 mg PO TID PRN (Reason: pain) 7 Days Qty: 20 0RF cyclobenzaprine 5 mg tablet 5 mg PO TID PRN (Reason: muscle spasm) 5 Days Qty: 15 0RF ketorolac 10 mg tablet 10 mg PO Q8H PRN (Reason: pain) 2 Days Qty: 10 0RF dexamethasone 6 mg tablet 6 mg PO .every other day Qty: 4 0RF Referrals Follow up/Referrals: Jose Valerio MD [Primary Care Provider] - See instructions Activity Restrictions/Add. Instructions Additional Instructions/Restrictions: You were evaluated in the emergency department today. 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 Follow-up closely with your primary care provider and your human resources hr representative, as we are unable to offer definitive treatment for your symptoms in the emergency department. Return to the emergency department for any new or worsening symptoms. Clinical Impressions Clinical Impression: Arthralgia of both feet, Gout flare Stand Alone Forms Stand Alone Forms: Work/School Release Instructions Patient Instructions: DI for Gout, DI for Acute Pain -- Adult, DI for Foot Pain Discharge ED Provider: Alexia Bhatti General Adult HPI General Chief complaint: PAIN Stated complaint: Gout in both feet Time Seen by Provider: 05/30/23 20:45 Mode of Arrival: Ambulatory Source of Information: Patient Limitations: No Limitations Description of Symptoms (Recalled from ER Triage Doc. by RN): Pt works at [employer] had to leave work due to legs swelling,hurting and bilateral heel pain which she believes to be her gout. Pt states she is out of her medication but has an appointment with Dr Valerio in the morning. History of Present Illness HPI narrative: This patient is a 38-year-old female who reports a history of gout and chronic pain in both of her feet. She states that she has been seen by this for podiatry as well as her primary care provider multiple times. She states that she was previously on narcotic pain medication but has not had any. She also states that she was on allopurinol, as she was told that it was gout. She states that the pain got much worse when she was at work today, so she had to leave. She was hoping to come in here for a pain shot and then go back to work, as they threatened to write her up if she misses work. She denies any fevers, recent injuries or other new concerns. She states that this feels the same as all of her previous flareups of foot and ankle pain. On medical record review, she has been evaluated multiple times by podiatry and here in the emergency department for this issue. Related Data Home Medications Medication Instructions Recorded Confirmed bupropion HCl 150 mg tablet,12 hr See Rx Instructions .Route 06/13/22 04/15/23 sustained-release .COMPLEX mood gabapentin 300 mg capsule 300 mg PO 04/15/23 04/15/23 indomethacin 50 mg capsule 50 mg PO 04/15/23 04/15/23 Previous Rx's Medication Instructions Recorded meloxicam 7.5 mg tablet 7.5 mg PO ONCE pain #90 ta
[2023-05-30 21:15] VITALS: BP 131/73; PULSE 93; RESP 18; TEMP 36.6; O2SAT 98
== END 2023-05-30 21:17 | disposition home or self-care (01) ==
PROVIDERS: Emergency Provider Emergency Medicine; PCP Emergency Medicine
DX: M10.071 Idiopathic gout, right ankle and foot (principal); M10.072 Idiopathic gout, left ankle and foot
CPT/HCPCS: 99283

== ENCOUNTER → 2023-06-05 01:10 | Outpatient (CLI) | payer MEDICAID, SELFPAY ==
[2023-06-05 21:21] LABS: Amphetamine/Metha Screen,Urine Negative ng/ml (<1000)
[2023-06-05 21:22] LABS: Barbiturates Screen,Urine Negative ng/ml (<200)
[2023-06-05 21:23] LABS: Benzodiazepines Screen,Urine Negative ng/ml (<200); Cannabinoid Screen,Urine Negative ng/ml (<50)
[2023-06-05 21:24] LABS: Cocaine Screen,Urine Negative ng/ml (<300)
[2023-06-05 21:25] LABS: Methadone Screen,Urine Negative ng/ml (<300)
[2023-06-05 21:26] LABS: Opiate Screen,Urine Negative ng/ml (<300); Phencyclidine Screen,Urine Negative ng/ml (<25)
== END ==
PROVIDERS: PCP Emergency Medicine; Visit Provider Emergency Medicine
DX: Z79.899 Other long term (current) drug therapy (principal)
CPT/HCPCS: 80305

== ENCOUNTER → 2023-06-25 11:00 | Outpatient (CLI) | payer MEDICAID, SELFPAY ==
[2023-06-25 16:04] LABS: Amphetamine/Metha Screen,Urine Negative ng/ml (<1000)
[2023-06-25 16:05] LABS: Barbiturates Screen,Urine Negative ng/ml (<200); Benzodiazepines Screen,Urine Negative ng/ml (<200)
[2023-06-25 16:06] LABS: Cannabinoid Screen,Urine Negative ng/ml (<50); Cocaine Screen,Urine Negative ng/ml (<300)
[2023-06-25 16:07] LABS: Methadone Screen,Urine Negative ng/ml (<300)
[2023-06-25 16:08] LABS: Opiate Screen,Urine Negative ng/ml (<300); Phencyclidine Screen,Urine Negative ng/ml (<25)
== END ==
PROVIDERS: PCP Internal Medicine; Visit Provider Internal Medicine
DX: M79.2 Neuralgia and neuritis, unspecified (principal)
CPT/HCPCS: 80305

== ENCOUNTER → 2023-07-09 17:02 | Outpatient (CLI) | payer MEDICAID, SELFPAY ==
[2023-07-09 17:38] LABS: Alanine Aminotransferase 50 U/L (12-78); Albumin Level 4.3 g/dl (3.5-5.0); Albumin/Globulin Ratio 1.4 (1.1-1.8); Alkaline Phosphatase 135 U/L (38-126); Anion Gap 14.9 mEq/L (5-15); Aspartate Amino Transferase 55 U/L (14-36); Bilirubin,Total 0.4 mg/dl (0.2-1.3); Blood Urea Nitrogen 18 mg/dl (7-17); Calcium 9.4 mg/dl (8.4-10.2); Carbon Dioxide 24 mmol/L (22.0-30.0); Chloride 105 mmol/L (98-107); Estimated Glomerular Filt Rate 95 ml/min (>60); GFR (African American) 115 ML/MIN (>60); Glucose 95 mg/dl (74-100); Potassium 3.9 mmoL/L (3.5-5.1); Sodium 140 mmol/L (136-145); Total Protein,Serum 7.3 g/dl (6.3-8.2)
== END ==
PROVIDERS: PCP Internal Medicine; Visit Provider Internal Medicine
DX: I10 Essential (primary) hypertension (principal)
CPT/HCPCS: 80053

== ENCOUNTER 2023-07-16 17:36 | Emergency (ER) | payer MEDICAID, SELFPAY ==
[2023-07-16 17:50] VITALS: BP 138/82; PULSE 85; RESP 17; TEMP 36.8; O2SAT 98; BMI 37.2
--- NOTE | 2023-07-16 17:52 | EXP.UTC ---
Discharge Plan Disposition Patient Disposition: Home, Self-Care Condition: Good Prescriptions Prescriptions: New azithromycin [Zithromax] 250 mg tablet 250 mg PO UD DOSE PK Qty: 6 0RF Rx Instructions: Take two (2) tablets today, then one (1) tablet days #2 thru #5 methylprednisolone 4 mg Tablets,Dose Pack 4 mg PO DIRECTED Qty: 21 0RF guaifenesin [Mucinex] 600 mg tablet extended release 12hr 600 - 1,200 mg PO BIDP PRN (Reason: Congestion) Qty: 30 0RF benzonatate [benzonatate] 100 mg capsule 100 mg PO TIDP PRN (Reason: Cough) Qty: 30 0RF No Action gabapentin 300 mg capsule 600 mg PO TID 30 Days Qty: 180 0RF semaglutide 7 mg tablet 7 mg PO DAILY Qty: 30 2RF allopurinol 100 mg tablet 100 mg PO DAILY 30 Days Qty: 30 1RF buprenorphine 7.5 mcg/hour patch weekly 1 patch transdermal Q7D 30 Days Qty: 4 0RF clonazepam [Klonopin] 1 mg tablet 1 mg PO TID Qty: 90 0RF Referrals Follow up/Referrals: Tom Brenner DO [Primary Care Provider] - See instructions Activity Restrictions/Add. Instructions Additional Instructions/Restrictions: Drink plenty of fluids. Take tylenol or ibuprofen for pain or fever. Take the medications as directed. Follow up with your regular doctor. GO TO THE ER FOR ANY WORSENING SYMPTOMS Clinical Impressions Clinical Impression: Bronchitis, Sinusitis Stand Alone Forms Stand Alone Forms: Work/School Release Instructions Patient Instructions: DI for Sinusitis Discharge ED Provider: Fran Caldwell [facility] General Stated complaint: headache,cough,back ache Time Seen by Provider: 07/16/23 18:19 History of Present Illness Provider Complaint: She states that for the past 2 week she has had a cough, chest congestion, and sinus congestion. Related Data Previous Rx's Medication Instructions Recorded allopurinol 100 mg tablet 100 mg PO DAILY 30 days #30 tabs 06/25/23 gabapentin 300 mg capsule 600 mg PO TID 30 days #180 caps 06/25/23 semaglutide 7 mg tablet 7 mg PO DAILY #30 tabs 06/25/23 buprenorphine 7.5 mcg/hour weekly 1 patch transdermal Q7D 30 days #4 06/26/23 transdermal patch ea clonazepam 1 mg tablet (Klonopin) 1 mg PO TID #90 tabs 07/08/23 azithromycin 250 mg tablet 250 mg PO UD DOSE PK #6 tabs 07/16/23 (Zithromax) benzonatate 100 mg capsule 100 mg PO TIDP PRN Cough #30 caps 07/16/23 guaifenesin 600 mg tablet, 600 - 1,200 mg PO BIDP PRN 07/16/23 extended release 12 hr (Mucinex) Congestion #30 tabs methylprednisolone 4 mg tablets in 4 mg PO DIRECTED #21 tabs 07/16/23 a dose pack Allergies Allergy/AdvReac Type Severity Reaction Status Date / Time hydrocodone [HYDROCODONE] Allergy Unknown Verified 07/09/23 12:57 [facility] Disclaimer: The information contained in this section may have been updated after the patient was seen, as this information can be updated by other users. Medical History Foot pain, bilateral Social History Smoking Status: Never smoker alcohol intake: never substance use type: former substance user, marijuana and heroin current occupational status: unemployed Travel in the last 8 weeks: None household members: family housing: house ROS Obtained: Yes All systems reviewed & no additional complaints except as documented Constitutional Constitutional: Reports poor appetite Eyes Eyes: Reports system reviewed and no additional complaints, except as documented ENT Ears, Nose, Mouth, and Throat: Reports as per HPI Cardiovascular Cardiovascular: Reports system reviewed and no additional complaints, except as documented and Denies chest pain Respiratory Respiratory: Denies shortness of breath, Reports chest congestion, Reports cough, Denies stridor and Denies wheezing Gastrointestinal Gastrointestingal: Reports system reviewed and no additional complaints, except as
[2023-07-16 18:30] VITALS: BP 138/82; PULSE 85; RESP 17; TEMP 36.8; O2SAT 98
== END 2023-07-16 18:34 | disposition home or self-care (01) ==
PROVIDERS: Emergency Provider Nurse Practitioner Family; PCP Internal Medicine
DX: J20.9 Acute bronchitis, unspecified (principal); J01.90 Acute sinusitis, unspecified
CPT/HCPCS: 99212; 99214; G0463

== ENCOUNTER 2023-09-23 15:55 | Outpatient (CLI) | payer MEDICAID, SELFPAY ==
[2023-09-23 14:35] LABS: Amphetamine/Metha Screen,Urine Negative ng/ml (<1000); Barbiturates Screen,Urine Negative ng/ml (<200); Benzodiazepines Screen,Urine Negative ng/ml (<200); Cannabinoid Screen,Urine Negative ng/ml (<50); Cocaine Screen,Urine Negative ng/ml (<300); Methadone Screen,Urine Negative ng/ml (<300); Opiate Screen,Urine Negative ng/ml (<300); Phencyclidine Screen,Urine Negative ng/ml (<25)
== END 2023-09-23 23:59 ==
LOC: LAB.DROPOF 15:55
PROVIDERS: PCP Internal Medicine; Visit Provider Internal Medicine
DX: Z79.899 Other long term (current) drug therapy (principal)
CPT/HCPCS: 80307

== ENCOUNTER 2023-12-04 21:40 | Emergency (ER) | payer MEDICAID, SELFPAY ==
--- NOTE | 2023-12-04 21:45 | XR_ITS ---
PROCEDURE INFORMATION: Exam: XR Left Forearm Exam date and time: 12/04/2023 9:43 PM Age: 38 years old Clinical indication: Pain; Lower or forearm; Left; Additional info: Natividad bartlett fell on arm, injury TECHNIQUE: Imaging protocol: Radiologic exam of the left forearm. Views: 2 views. COMPARISON: CR XR WRIST LT MIN 3V 12/04/2023 9:43 PM FINDINGS: Bones/joints: Plate and screws on the mid to distal radius. Hardware is intact. No fracture or dislocation. No significant arthropathy. Soft tissues: Normal. IMPRESSION: No acute findings.
--- NOTE | 2023-12-04 21:45 | XR_ITS ---
PROCEDURE INFORMATION: Exam: XR Left Wrist Exam date and time: 12/04/2023 9:43 PM Age: 38 years old Clinical indication: Pain; Wrist; Left; Additional info: Natividad bartlett fell on arm, injury TECHNIQUE: Imaging protocol: Radiologic exam of the left wrist. Views: 3 or more views. COMPARISON: CR XR FOREARM LT 2V 12/04/2023 9:43 PM FINDINGS: Bones/joints: Plate and screws on the distal radius. No acute fracture or dislocation. No significant arthropathy. Soft tissues: Normal. IMPRESSION: No acute findings.
[2023-12-04 21:46] VITALS: BP 134/87; PULSE 87; RESP 19; TEMP 36.8; O2SAT 99; BMI 33.4
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
[2023-12-04 22:01] VITALS: BP 112/70; PULSE 75; RESP 19; TEMP 36.7; O2SAT 98
== END 2023-12-04 22:02 | disposition home or self-care (01) ==
PROVIDERS: Emergency Provider Emergency Medicine; PCP Internal Medicine
DX: S50.12XA Contusion of left forearm, initial encounter (principal); W22.8XXA Striking against or struck by other objects, initial encounter
CPT/HCPCS: 73090; 73110; 99284

== ENCOUNTER 2024-04-08 07:37 | Outpatient (CLI) | payer BC, SELFPAY ==
--- NOTE | 2024-04-08 07:52 | XR_ITS ---
FINAL REPORT CLINICAL HISTORY: foot pain COMPARISON: 02/09/2023 FINDINGS: Left knee Three views were obtained. There is no acute fracture or dislocation. The joint spaces appear normal. There is [id number] hallux valgus deformity, slightly worse. Mild calcaneal spurring is identified. No soft tissue abnormality is identified. IMPRESSION: No acute process. Reviewed, Interpreted and Dictated by Alejandro Iyer MD Transcribed by Martha Hyatt Authenticated and . [facility]
--- NOTE | 2024-04-08 07:52 | XR_ITS ---
FINAL REPORT CLINICAL HISTORY: foot pain COMPARISON: 02/09/2023 FINDINGS: Right knee Three views were obtained. There is no acute fracture or dislocation. The joint spaces appear normal. There is moderate hallux valgus deformity, mildly worse. Mild calcaneal spurring is identified. No soft tissue abnormality is identified. IMPRESSION: No acute process. Reviewed, Interpreted and Dictated by Alejandro Iyer MD Transcribed by Martha Hyatt Authenticated and [facility]
== END 2024-04-08 23:59 | disposition home or self-care (01) ==
LOC: RAD 07:38
PROVIDERS: PCP Internal Medicine; Visit Provider Nurse Practitioner
DX: M79.671 Pain in right foot (principal); M79.672 Pain in left foot
CPT/HCPCS: 73630

== ENCOUNTER 2024-06-02 13:34 | Outpatient (CLI) | payer BC, SELFPAY ==
[2024-06-02 22:09] LABS: Chol/HDL Ratio 3.3 (1-3.5); Cholesterol 217 mg/dl (140-200); HDL Cholesterol 65 mg/dl (40-60); Triglycerides 142 mg/dl (30-150); VLDL Cholesterol 28 mg/dL (0-40)
[2024-06-02 22:20] LABS: Direct LDL Cholesterol 100.54 mg/dL (100-129)
== END 2024-06-02 23:59 | disposition home or self-care (01) ==
LOC: LAB 06-03 10:31
PROVIDERS: PCP Internal Medicine; Visit Provider Internal Medicine
DX: E11.42 Type 2 diabetes mellitus with diabetic polyneuropathy (principal); E03.9 Hypothyroidism, unspecified; Z79.85 Long-term (current) use of injectable non-insulin antidiabetic drugs
CPT/HCPCS: 80061; 83036

== ENCOUNTER 2024-07-03 09:42 | Emergency (ER) | payer BC, SELFPAY ==
[2024-07-03 09:43] VITALS: BP 140/79; PULSE 83; RESP 18; TEMP 36.8; O2SAT 100; BMI 38.9
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
--- NOTE | 2024-07-03 11:46 | PC.NURSE ---
Registration called to ER nurses' station and pt asked to be checked into the [facility] instead of ER. MD has not seen pt yet and will leave without being seen. job site supervisor notified.
[2024-07-03 11:47] VITALS: BP 140/79; PULSE 83; RESP 18; TEMP 36.8; O2SAT 100
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
== END 2024-07-03 11:48 | disposition left against medical advice (07) ==
PROVIDERS: Emergency Provider Emergency Medicine; PCP Internal Medicine
DX: Z53.21 Procedure and treatment not carried out due to patient leaving prior to being seen by health care provider (principal); M25.571 Pain in right ankle and joints of right foot; M25.572 Pain in left ankle and joints of left foot; M79.671 Pain in right foot; M79.672 Pain in left foot; R20.2 Paresthesia of skin
CPT/HCPCS: 99281

== ENCOUNTER 2024-07-03 11:48 | Emergency (ER) | payer BC, SELFPAY ==
[2024-07-03 12:21] VITALS: BP 134/76; PULSE 64; RESP 20; TEMP 36.6; O2SAT 100; BMI 38.9
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
[2024-07-03] MEDS: KETOROLAC 60MG/2ML VIAL 60 MG IM (12:48)
[2024-07-03] MEDS: DEXAMETHASONE 4MG/ML 1ML VIAL 8 MG IM (12:49)
[2024-07-03 13:11] VITALS: BP 134/76; PULSE 64; RESP 20; TEMP 36.6
== END 2024-07-03 13:20 | disposition home or self-care (01) ==
PROVIDERS: Emergency Provider Nurse Practitioner Family; PCP Internal Medicine
DX: M79.671 Pain in right foot (principal); M79.672 Pain in left foot
CPT/HCPCS: 96372; 99213; G0381; J1100; J1885

== ENCOUNTER 2024-08-11 06:55 | Emergency (ER) | payer SELFPAY ==
[2024-08-11] VITALS (8 sets, daily range): BP systolic 97–126; BP diastolic 57–76; PULSE 78–105; RESP 12–19; TEMP 36.6–36.8; O2SAT 92–100; BMI 38.7
--- NOTE | 2024-08-11 07:06 | XR_ITS ---
FINAL REPORT CLINICAL HISTORY: seizure like activity, ams COMPARISON: None FINDINGS: A portable view of the chest is obtained. Cardiac and mediastinal silhouettes are normal. There are low lung volumes. The lungs are clear. There is no pleural effusion or pneumothorax. IMPRESSION: No acute process on this portable exam. Reviewed, Interpreted and Dictated by Tamia Zeepda MD Transcribed by Pema Torres Authenticated and [facility]
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
[2024-08-11 07:24] LABS: Alanine Aminotransferase 48 U/L (12-78); Albumin Level 4.5 g/dl (3.5-5.0); Albumin/Globulin Ratio 1.4 (1.1-1.8); Alkaline Phosphatase 127 U/L (38-126); Anion Gap 19.6 mEq/L (5-15); Aspartate Amino Transferase 55 U/L (14-36); Bilirubin,Total 0.6 mg/dl (0.2-1.3); Blood Urea Nitrogen 13 mg/dl (7-17); Carbon Dioxide 17 mmol/L (22.0-30.0); Chloride 108 mmol/L (98-107); Creatinine Clearance Estimated 161 mL/min (50-200); Estimated Glomerular Filt Rate 81 ml/min (>60); GFR (African American) 98 ML/MIN (>60); Globulin 3.2 g/dL (1.3-3.2); Glucose 167 mg/dl (74-100); Magnesium 1.7 mg/dl (1.6-2.3); Potassium 3.6 mmoL/L (3.5-5.1); Sodium 141 mmol/L (136-145); Total Protein,Serum 7.7 g/dl (6.3-8.2)
[2024-08-11 07:24] LABS: VBG Base Excess -7.8 mmol/L (-2.4-2.3); VBG HCO3 17.7 mmol/L (23-30); VBG Oxygen Saturation 96.7 % (50-70); VBG PCO2 32.2 mmol/L (35-51); VBG PH 7.36 mmol/L (7.31-7.41); VBG PO2 89.2 mmol/L (28-40); VBG Total CO2 18.7 mmol/L (23-27)
[2024-08-11 07:25] LABS: Lactate Venous 6.3 mmol/L (0.4-2.0)
[2024-08-11] MEDS: ONDANSETRON 4MG/2ML VIAL 4 MG IV (07:25)
[2024-08-11] MEDS: levETIRAcetam 2,000 MG in 0.9 % SODIUM CHLORIDE 100 ML 240 MG IV ×2 (07:26→07:38)
[2024-08-11 07:27] LABS: Basophils # 0.1 K/mm3 (0-0.2); Basophils % 0.7 % (0.1-2.0); Eosinophils # 0.1 K/mm3 (0.0-0.4); Eosinophils % 0.7 % (0.1-12.0); Hematocrit 41.1 % (37.0-47.0); Hemoglobin 13.8 g/dL (12.2-16.2); Lymphocytes # 2.7 K/mm3 (0.7-4.5); Lymphocytes % 27.1 % (10-50); Mean Corpuscular HGB Conc 33.6 g/dL (31.8-35.4); Mean Corpuscular Hemoglobin 29.5 pg (27.0-31.2); Mean Corpuscular Volume 87.7 fl (81-99); Mean Platelet Volume 6.8 fl (7.4-10.4); Monocytes # 0.4 K/mm3 (0.1-1.0); Monocytes % 3.7 % (1.7-9.3); Neutrophils # 6.7 K/mm3 (1.8-7.8); Neutrophils % 67.7 % (37.0-80.0); Platelet Count 319 K/mm3 (142-424); Red Blood Count 4.69 M/mm3 (4.20-5.40); Red Cell Distribution Width 13.3 % (11.5-17.5); White Blood Count 9.9 K/mm3 (4.8-10.8)
[2024-08-11 07:30] LABS: Salicylate < 1.0 mg/dL (2.0-20.0)
[2024-08-11] MEDS: LORazepam 2MG/ML VIAL 4 MG IV (07:30)
[2024-08-11 07:34] LABS: NT Pro Brain Natriuretic Pep. 47.6 pg/mL (0-125)
--- NOTE | 2024-08-11 07:36 | PC.NURSE ---
FSBS is 168 at this time.
--- NOTE | 2024-08-11 07:37 | ECG_ITS ---
APPROVED REPORT Exam: Resting ECG HR:90 bpm ECG Measurements Heart Rate 90 AXES KS 158 P 61 QRSd 99 QRS 47 QT 399 T 44 QTc 447 Conclusion Sinus rhythm Electronically signed by : ZENA ENRIQUEZ, 08/11/2024 11:33:43
[2024-08-11 07:39] LABS: Activated Partial Thrombo Time 21.4 seconds (22.8-30.6); Prothrombin Time 10.2 seconds (10.1-12.5)
--- NOTE | 2024-08-11 07:40 | PC.NURSE ---
@ 0724 Dr Tran notified of critical lactic. @ 0725 This RN at bedside given zofran and Keppra dose. Pt was awake and talking. Educated that we need a urine sample. @ 0727 Pt began to stiffen all over and then appeared to have a tonic/clonic seizure, her jaw locking up and she was having apnea. I notified Dr. Tran of pt's status change. Placed pt on 100% NRB. He gave verbal order for Ativan 4mg @ 0729 Ativan given. @ 0730 Pt's seizing is stopped. maintained patent airways, seizure pads are in place, and HR is returned to pre-seizure (99). ordered additional Keppra 2 grams. @ 0731 Pt arousing, post ictal state and confused. transitioned pt to 2lpm NC and sat maintaining well (98%).
[2024-08-11 07:41] LABS: T4 (Thyroxine) 14.2 ug/dl (5.53-11.0)
[2024-08-11 07:54] LABS: Thyroid Stimulating Hormone 1.61 uIU/mL (0.465-4.68)
[2024-08-11 07:55] LABS: HCG,Quantitative < 2 mIU/ml (0-5.42); Troponin I < 0.01 ng/ml (0.00-0.034)
--- NOTE | 2024-08-11 08:01 | CT_ITS ---
FINAL REPORT TECHNIQUE: Axial CT of the brain with contrast per CT venogram protocol. Coronal and sagittal reformatted images were obtained. This study was performed with techniques to keep radiation doses as low as reasonably achievable, (ALARA). Individualized dose reduction techniques using automated exposure control or adjustment of mA and/or kV according to the patient's size were employed. CLINICAL HISTORY: ams, new status epilepticus, nausea COMPARISON: None FINDINGS: Exam is limited secondary to contamination due to contrast in the arterial system. No thrombus is seen within the transverse sinuses, superior sagittal sinuses, or inferior sagittal sinuses. IMPRESSION: No evidence of thrombus. Consider MRI if clinical concern persist. Reviewed, Interpreted and Dictated by Tamia Zepeda MD Transcribed by Pema Torres Authenticated and [facility]
--- NOTE | 2024-08-11 08:01 | CT_ITS ---
FINAL REPORT TECHNIQUE: Thin section axial images were obtained from skull base to vertex without contrast. Coronal reconstruction images were obtained from the axial data. Exam was performed using dose reduction technique. CLINICAL HISTORY: AMS new seizures COMPARISON: 06/13/2022 FINDINGS: There is no mass effect or midline shift. There is no hydrocephalus. There is no intracranial hemorrhage. The posterior fossa is without acute abnormality. The basilar cisterns are preserved. The soft tissues are without acute abnormality. No acute osseous abnormality is identified. IMPRESSION: No acute intracranial abnormality. Reviewed, Interpreted and Dictated by Tamia Zepeda MD Transcribed by Pema Torres Authenticated and [facility]
[2024-08-11 08:04] LABS: Microscopic, Urine URINE MICROSCOPIC (MICROSCOPIC)
[2024-08-11 08:05] LABS: Appearance,Urine CLEAR (Clear); Bilirubin,Urine Negative (Negative); Blood, Urine Negative (Negative); Color,Urine YELLOW (Yellow); Glucose,Urine (UA) Negative (Negative); Ketones,Urine Negative (Negative); Leukocyte Esterase,Urine Negative (Negative); Nitrate,Urine Negative (Negative); Protein,Urine 2+ (Negative); Specific Gravity, Urine >= 1.030 (1.005-1.030); Urobilinogen,Urine 0.2 EU/dl (0.2)
[2024-08-11] MEDS: MAGNESIUM SULFATE IN WATER 2 GM/50 ML PIGGYBACK IV (08:06)
[2024-08-11] MEDS: 0.9 % SODIUM CHLORIDE 1000ML 1,000 ML 999 ML IV (08:06)
[2024-08-11 08:23] LABS: Acetaminophen < 10 ug/ml (10-30); Ethyl Alcohol < 10 mg/dl (0-10)
--- NOTE | 2024-08-11 08:30 | PC.NURSE ---
Patientt in CT at this time
[2024-08-11] MEDS: SODIUM CHLORIDE 0.9% 10ML SYR (RAD ONLY) 10 ML IV (08:33)
[2024-08-11] MEDS: IOPAMIDOL-370 (76%);100ML BOTTLE 80 ML IV (08:33)
[2024-08-11] MEDS: 0.9 % SODIUM CHLORIDE 50 ML VIAL IV (08:33)
[2024-08-11 08:51] LABS: Amphetamine/Metha Screen,Urine Negative ng/ml (<1000)
[2024-08-11 08:52] LABS: Barbiturates Screen,Urine Negative ng/ml (<200); Benzodiazepines Screen,Urine Negative ng/ml (<200)
[2024-08-11 08:53] LABS: Cannabinoid Screen,Urine Negative ng/ml (<50)
[2024-08-11 08:54] LABS: Cocaine Screen,Urine Negative ng/ml (<300); Methadone Screen,Urine Negative ng/ml (<300)
[2024-08-11 08:55] LABS: Opiate Screen,Urine Negative ng/ml (<300); Phencyclidine Screen,Urine Negative ng/ml (<25)
--- NOTE | 2024-08-11 09:04 | PC.NURSE ---
patient back in room at this time.
--- NOTE | 2024-08-11 09:12 | PC.NURSE ---
calling [facility] at this time.
[2024-08-11 09:18] LABS: Bacteria,Urine Trace /lpf
--- NOTE | 2024-08-11 09:19 | PC.NURSE ---
o/p with at this time.
--- NOTE | 2024-08-11 09:40 | PC.NURSE ---
called report to [facility] brush washerefraín brito
--- NOTE | 2024-08-11 09:42 | PC.NURSE ---
[facility] notified of transfer to [facility]- ALS
[2024-08-11 09:43] LABS: Hemoglobin A1C 5.1 % (4.0-6.0)
--- NOTE | 2024-08-11 09:44 | PC.NURSE ---
spoke with ems regarding als transfer to er to er, pt insurance has not been put it in by registration yet, ems wants us to call back when insurance is in and prior auth is done if needed. er charge and housecleaner floor notified
[2024-08-11 11:24] LABS: Reflex Lactic Add Lactic Reflex
[2024-08-11 13:48] LABS: HIV (1&2) Antibody Rapid NONREACTIVE (NONREACTIVE)
[2024-08-15 13:49] LABS: HCV Ab Reactive (Non Reactive)
== END 2024-08-11 10:24 | disposition short-term general hospital (02) ==
PROVIDERS: Emergency Provider Emergency Medicine
DX: G40.901 Epilepsy, unspecified, not intractable, with status epilepticus (principal); R41.82 Altered mental status, unspecified; R53.83 Other fatigue; R47.81 Slurred speech
CPT/HCPCS: 70450; 70496; 71045; 80053; 80307; 80320; 80329; 81001; 82803; 83036; 83735; 83880; 84436; 84443; 84484; 84702; 85025; 85610; 85730; 86803; 87389; 93005; 96361; 96365; 96374; 96375; 99291; G0480; J1953; J2060; J2405; J3475; J7030; Q9967

== ENCOUNTER 2024-12-15 10:05 | Outpatient (CLI) | payer MEDICAID, SELFPAY ==
[2024-12-15 18:44] LABS: Basophils % 0.3 % (0.1-2.0); Eosinophils # 0.1 K/mm3 (0.0-0.4); Eosinophils % 1.2 % (0.1-12.0); Hematocrit 40.6 % (37.0-47.0); Hemoglobin 13.4 g/dL (12.2-16.2); Lymphocytes # 1.9 K/mm3 (0.7-4.5); Mean Corpuscular Hemoglobin 29.2 pg (27.0-31.2); Mean Corpuscular Volume 88.5 fl (81-99); Mean Platelet Volume 9.3 fl (7.4-10.4); Monocytes # 0.3 K/mm3 (0.1-1.0); Monocytes % 4.8 % (1.7-9.3); Neutrophils # 4.2 K/mm3 (1.8-7.8); Neutrophils % 64.5 % (37.0-80.0); Platelet Count 291 K/mm3 (142-424); Red Blood Count 4.59 M/mm3 (4.20-5.40); Red Cell Distribution Width 12.5 % (11.5-17.5); White Blood Count 6.5 K/mm3 (4.8-10.8)
[2024-12-15 20:29] LABS: Alanine Aminotransferase 31 U/L (12-78); Albumin Level 4.8 g/dl (3.5-5.0); Albumin/Globulin Ratio 1.3 (1.1-1.8); Alkaline Phosphatase 164 U/L (38-126); Anion Gap 18.5 mEq/L (5-15); Aspartate Amino Transferase 31 U/L (14-36); Bilirubin,Total 0.6 mg/dl (0.2-1.3); Blood Urea Nitrogen 13 mg/dl (7-17); Calcium 10.4 mg/dl (8.4-10.2); Carbon Dioxide 21 mmol/L (22.0-30.0); Chloride 106 mmol/L (98-107); Chol/HDL Ratio 3.8 (1-3.5); Cholesterol 206 mg/dl (140-200); Estimated Glomerular Filt Rate 70 ml/min (>60); GFR (African American) 85 ML/MIN (>60); Globulin 3.8 g/dL (1.3-3.2); Glucose 92 mg/dl (74-100); HDL Cholesterol 54 mg/dl (40-60); Potassium 4.5 mmoL/L (3.5-5.1); Sodium 141 mmol/L (136-145); Total Protein,Serum 8.6 g/dl (6.3-8.2); Triglycerides 182 mg/dl (30-150); Uric Acid 6.9 mg/dl (2.5-6.2); VLDL Cholesterol 36 mg/dL (0-40)
[2024-12-15 20:36] LABS: Free T4 (Free Thyroxine) 1.21 ng/dl (0.78-2.19)
[2024-12-15 20:40] LABS: Direct LDL Cholesterol 100.26 mg/dL (100-129)
[2024-12-15 20:45] LABS: Hemoglobin A1C 5.1 % (4.0-6.0)
[2024-12-15 21:01] LABS: Thyroid Stimulating Hormone 2.28 uIU/mL (0.465-4.68)
[2024-12-19 17:21] LABS: Levetiracetam (Keppra) 11.5 ug/mL (10.0-40.0)
== END 2024-12-15 23:59 | disposition home or self-care (01) ==
LOC: LAB.DROPOF 12-16 12:36
PROVIDERS: PCP Family Medicine; Visit Provider Family Medicine
DX: G40.909 Epilepsy, unspecified, not intractable, without status epilepticus (principal); E11.42 Type 2 diabetes mellitus with diabetic polyneuropathy; R79.89 Other specified abnormal findings of blood chemistry; M10.9 Gout, unspecified
CPT/HCPCS: 80053; 80061; 80177; 83036; 84439; 84443; 84550; 85025

== ENCOUNTER 2024-12-22 14:58 | Outpatient (CLI) | payer MEDICAID, SELFPAY ==
[2024-12-22 16:45] LABS: Alanine Aminotransferase 41 U/L (12-78); Alkaline Phosphatase 171 U/L (38-126); Aspartate Amino Transferase 34 U/L (14-36); Bilirubin,Direct 0.3 mg/dl (0.0-0.4); Bilirubin,Indirect 0.1 mg/dL (0.0-0.9); Bilirubin,Total 0.4 mg/dl (0.2-1.3); Bilirubin,Unconjugated 0.1 mg/dL (0.0-1.1); Gamma Glutamyl Transpeptidase 191 U/L (12-43); Total Protein,Serum 7.1 g/dl (6.3-8.2); Uric Acid 5.9 mg/dl (2.5-6.2)
[2024-12-23 17:11] LABS: Albumin 3.3 g/dL (2.9-4.4); Alpha-1-Globulin 0.2 g/dL (0.0-0.4); Alpha-2-Globulin 0.9 g/dL (0.4-1.0); Gamma Globulin 1.4 g/dL (0.4-1.8); Protein, Total 6.9 g/dL (6.0-8.5)
[2025-01-03 10:08] LABS: PDF SCANNED IMAGE
== END 2024-12-22 23:59 | disposition home or self-care (01) ==
LOC: LAB 14:59
PROVIDERS: PCP Family Medicine; Visit Provider Family Medicine
DX: R73.09 Other abnormal glucose (principal)
CPT/HCPCS: 36415; 80076; 82977; 84155; 84165; 84550

== ENCOUNTER 2024-12-23 20:27 | Emergency (ER) | payer MEDICAID, SELFPAY ==
[2024-12-23 21:14] VITALS: BP 143/89; PULSE 109; RESP 20; TEMP 36.9; O2SAT 99; BMI 40.7
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
[2024-12-23 21:38] VITALS: BP 128/72; PULSE 74; RESP 16; TEMP 37.2; O2SAT 98
== END 2024-12-23 21:39 | disposition home or self-care (01) ==
PROVIDERS: Emergency Provider Emergency Medicine; PCP Family Medicine
DX: N75.1 Abscess of Bartholin's gland (principal)
CPT/HCPCS: 99283; 10060

== ENCOUNTER 2025-01-20 09:05 | Outpatient (CLI) | payer MEDICAID, SELFPAY ==
--- NOTE | 2025-01-20 09:15 | US_ITS ---
FINAL REPORT TECHNIQUE: Sonographic images of the right upper quadrant were obtained. CLINICAL HISTORY: Fatty liver COMPARISON: 04/27/2021 FINDINGS: PANCREAS: The tail is obscured. The head is normal. LIVER: There is mild fatty infiltration of the liver. No focal hepatic lesion. No intrahepatic biliary ductal dilatation. The portal vein is patent. There is normal directional flow. GALLBLADDER: The gallbladder is absent. COMMON DUCT: 9 mm, which is dilated even after cholecystectomy. This has worsened since the prior exam. RIGHT KIDNEY: The right kidney measures 9.2 cm. There is no hydronephrosis, mass, or stone. FREE FLUID: None. IMPRESSION: Mild fatty liver. Worsening common duct dilatation even after cholecystectomy. If right upper quadrant pain is present or persists, consider MRCP. Reviewed, Interpreted and Dictated by Tamia Zepeda MD Transcribed by Marya Ragland Authenticated and [facility]
== END 2025-01-20 23:59 | disposition home or self-care (01) ==
LOC: RAD 09:06
PROVIDERS: PCP Family Medicine; Visit Provider Family Medicine
DX: R74.8 Abnormal levels of other serum enzymes (principal)
CPT/HCPCS: 76705

== ENCOUNTER 2025-06-11 10:44 | Outpatient (CLI) | payer MEDICAID, SELFPAY ==
[2025-06-11 16:10] LABS: Chloride 104 mmol/L (98-107)
[2025-06-11 16:11] LABS: Albumin Level 4.7 g/dl (3.5-5.0); Potassium 4.5 mmoL/L (3.5-5.1); Sodium 141 mmol/L (136-145)
[2025-06-11 16:13] LABS: Anion Gap 15.5 mEq/L (5-15); Blood Urea Nitrogen 11 mg/dl (7-17); Carbon Dioxide 26 mmol/L (22.0-30.0); Creatinine,Serum 0.80 mg/dl (0.52-1.04); Estimated Glomerular Filt Rate 80 ml/min (>60); GFR (African American) 97 ML/MIN (>60)
[2025-06-11 16:14] LABS: Alanine Aminotransferase 27 U/L (12-78); Albumin/Globulin Ratio 1.6 (1.1-1.8); Alkaline Phosphatase 133 U/L (38-126); Aspartate Amino Transferase 43 U/L (14-36); Bilirubin,Total 0.5 mg/dl (0.2-1.3); Calcium 9.5 mg/dl (8.4-10.2); Globulin 2.9 g/dL (1.3-3.2); Glucose 77 mg/dl (74-100); Total Protein,Serum 7.6 g/dl (6.3-8.2); Uric Acid 4.9 mg/dl (2.5-6.2)
--- OUTSIDE RECORDS SUMMARY | 2025-06-14 10:45 | XMS_ITS | Clinical Summary ---
Author Organization [facility] Address [address] [place] [address] Care Team Providers Care Casting And Locker Room Servicer Name Role Phone Tom Brenner Primary Care Provider [phone] Allergies Active Allergy Reactions Criticality Noted Date Comments Hydrocodone Itching,Rash Medium 08/12/2024 Medications allopurinol (Zyloprim) 100 MG tablet Take 1 tablet (100 mg) by mouth 1 (one) time each day. Active buprenorphine-n aloxone (Suboxone) 8-[address] 2 tablets under the tongue 1 (one) time each day. Active clonazePAM (KlonoPIN) 0.5 MG tablet Take 1 tablet (0.5 mg) by mouth 3 (three) times a day if needed for anxiety. Active gabapentin (Neurontin) 600 MG tablet Take 1 tablet (600 mg) by mouth 3 (three) times a day. Active lamoTRIgine (LaMICtal) 100 MG tablet Take 1 tablet (100 mg) by mouth 1 (one) time each day. Active diclofenac (Voltaren) 1 % topical gel 04/08/2024 Active SUMAtriptan (Imitrex) 50 MG tablet Take 1 tablet (50 mg) by mouth 1 (one) time if needed for migraine (may repeat x1) for up to 54 doses. May repeat dose once in 2 hours if no relief. Do not exceed 2 doses in 24 hours. 9 tablet 5 08/25/2024 Active levETIRAcetam (Keppra) 750 MG tablet Take 1 tablet by mouth 2 times a day. 60 tablet 2 02/18/2025 Active topiramate (Topamax) 25 MG tablet Take 1 tablet by mouth 2 times a day. 60 tablet 03/12/2025 Active Active Problems Problem Noted Date Diagnosed Date Seizure 08/11/2024 Encounters Date Type Department Care Team Description 05/20/2025 Telephone [facility] [address] [place] [address] Lamont cMkay MD from Last 3 Months Social History Tobacco Use Types Packs/Day Years Used Date Smoking Tobacco: Some Days Cigars Smokeless Tobacco: Never Tobacco Cessation:Ready to Q uit: Not Asked; Counseling Given: Not Answered Alcohol Use Standard Drinks/Week Comments Never 0 (1 standard drink = 0.6 oz pur e alcohol) Humiliation, Afraid, Rape, and Kick questionnair e Answer Date Recorded Within the last year, have y ou been afraid of your partner or ex-partner? No 08/12/2024 Within the last year, have y ou been humiliated or emotionally abused in other ways by your partner or ex-partner? No Within the last year, have y ou been kicked, hit, slapped, or otherwise physically hurt by your partner or ex-partner? No 08/12/2024 Within the last year, have y ou been raped or forced to have any kind of sexual activity by your partner or ex-partner? No 08/12/2024 Hunger Vital Sign Answer Date Recorded Within the past 12 months, y ou worried that your food would run out before you got the money to buy more. Never true 08/12/20 24 Within the past 12 months, t he food you bought just didn't last and you didn't have money to get more. Never true 08/12/2024 PRAPARE - Transportation Answer Date Re corded In the past 12 months, has l ack of transportation kept you from medical appointments or from getting medications? No 07/18 In the past 12 months, has l ack of transportation kept you from meetings, work, or from getting things needed for daily living? No 08/12/2024 Housing Stability Vital Sign Answer Clayton e Recorded In the last 12 months, was t here a time when you were not able to pay the mortgage or rent on time? No 08/12/2024 In the past 12 months, how m any times have you moved where you were living? 1 08/12/2024 At any time in the past 12 m [facility], were you homeless or living in a penitentiary (including now)? No 08/12/2024 Utilities Answer Date Recorded In the past 12 months has th e [employer], gas, oil, or water company threatened to shut off services in your home? No 08/12/2024 Comments Unknown Sex and Gender Information Value Date Recorded Sex Assigned at Not on file Legal Sex Female 8:42 PM EDT Gender Identity Not on file Sexual Orientation Not on file Last Filed Vital Signs Vital Sign Reading Time Taken Comments Blood Pressure 111/75 08/25/2024 2:44 PM EST Pulse 92 08/25/2024 2:44 PM EST Temperature 37 C (98.6 F) 08/12/2024 4:34 PM EST Respiratory Rate 14 08/12/2024 11:57 AM EST Oxygen Saturation 95% 08/25/2024 2:44 PM EST Inhaled Oxygen Concentration - - Weight 103 kg (227 lb 1.2 oz) 08/25/2024 2:44 PM EST Height 160 cm (5' 3 ) 08/25/2024 2:44 PM EST Body Mass Index 40.22 08/25/2024 2:44 PM EST Plan of Treatment Health Maintenance Due Date Last Done Comments [facility]-Depression Screening 1987 [facility]-/Child/Adol SDOH Screenings 1987 [facility]-Varicella Vaccines (1 of 2 - 13+ 2-dose series) 02/25/2000 [facility]-Pneumococcal Vaccine: Pediatrics (0 to 5 Years) and At-Risk Patients (6 to 49 Years) (1 of 2 - PCV) 2006 [facility]-Pap Smear 02/25/2008 HPV Vaccines (1 - 3-dose SCD M series) 2014 [facility]-Cervical Cancer Screening 2017 [facility]-HPV/Cotest 2017 [facility]- SDOH Screenings 02/09/2025 [facility]-Adult SDOH Screenings 02/09/2025 08/12/2024 [id number] Vaccine (2 - 2024- season) 2025 01/31/2021 [facility]-Influenza Vaccine (#1) 2025 [facility]-DTaP,Tdap,and Td Vaccine s (3 - Td or Tdap) 01/11/2032 01/10/2022, 06/05/2004 [facility]-Zoster Vaccines (1 of 2) 2037 [facility]-Hepatitis B Vaccines Completed 004, 05/30/1998, 03/31/1998 [facility]-HIV Screening Completed 08/11/2024 [facility]-Hepatitis C Screening Completed 08/11/2024 [facility]-Obesity Intervention Completed 024, 08/11/2024 [facility]-HIB Vaccines Aged Out No longer e ligible based on patient's age to complete this topic [facility]-Hepatitis A Vaccines Aged Out No longer eligible based on patient's age to complete this topic [facility]-IPV Vaccines Aged Out No longer e ligible based on patient's age to complete this topic [facility]-Rotavirus Vaccines Aged Out No lo nger eligible based on patient's age to complete this topic Procedures Procedure Name Priority Date/Time Associated Diagnosis Comments HEPATITIS C ANTIBODY - ED W/REFLEX TO HCV QUANT PCR STAT 08/11/2024 12:20 PM EST ED HIV 1/2 ANTIBODY/ANTIGEN SCREEN WITH REFLEX TO HIV I/II DIFFERENTIATION STAT 08/11/2024 12:19 PM EST from Last 3 Months or Most Recently Relevant to Health Maintenance Results * (ABNORMAL) Hepatitis C Antibody - ED (08/11/2024 12:20 PM EST) Hepatitis C Antibody Positive(A ) Negative 08/11/2024 1:38 PM EST [facility] Blood Venous blood specimen / Unknown Venipuncture / Unknown 08/11/2024 12:20 PM EST 08/11/2024 12:42 PM EST us Darren Glaser MD LAB BLOOD ORDERABLES Final Result [facility] [address] [place] [address] * ED HIV 1/2 Antibody/Antigen Screen w/Reflex to HIV 1/2 Differentiation (08/11/2024 12:19 PM EST) HIV 1 & 2 Antibody/Antigen Screen Non Reactive Non Reactive 08/11/2024 2:23 PM EST [facility] Comment:Screening for HIV 1 & 2 antibodies, and P24 antigen is NONREACTIVE. No confirmatory testing is required. Blood Venous blood specimen / Unknown Venipuncture / Unknown 08/11/2024 12:19 PM EST 08/11/2024 12:42 PM EST us Darren Glaser MD LAB BLOOD ORDERABLES Final Result [facility] [address] [place] [address] from Last 3 Months or Most Recently Relevant to Health Maintenance Insurance [facility] [employer] [facility] MEDICAID Advance Directives * Full Code (Latest Code Status on File) Date Activated Date Inactivated Comments 08/11/2024 5:52 PM 08/12/2024 10:37 PM Question Answer Comments Patient has decision-making capacity? Yes Care Teams Casting And Locker Room Servicer Relationship Specialty Start Date End Date Tom Brenner DO [address] [place] [address] PCP - General 08/12/24
--- OUTSIDE RECORDS SUMMARY | 2025-06-14 10:45 | XMS_ITS | Clinical Summary ---
[facility] Address [address] [place] [address] Care Team Providers Care Colorist Photography Name Role Phone Unavailable Primary Care Provider Unavailabl e Social History Tobacco Use Types Packs/Day Years Used Date Smoking Tobacco: Never Assessed Abuse Screen Answer Date Recorded Unsafe at Home or Work/School Not on file Feels Threatened by Someone? Not on file 05/2023 Does Anyone Keep You from Co ntacting Others or Doint Things Outside the Home? Not on file 06/24/2023 Physical Sign of Abuse Present Not on file 1 Housing Stability Answer Date Recorded Current Living Arrangements Not on file 05/2023 Potentially Unsafe Housing Conditions Not on radha e 06/24/2023 Family and Community Support Answer Clayton e Recorded Help with Day-to-Day Activities Not on file 06/24/2023 Lonely or Isolated Not on file 06/24/2023 Employment Answer Date Recorded Do you want help finding or keeping work or a kennedy b? Not on file 06/24/2023 Disabilities Answer Date Recorded Concentrating, Remembering, or Making Decisions Difficulty Not on file 06/24/2023 Doing Errands Independently Difficulty Not on fi le 06/24/2023 Education Answer Date Recorded Help with school or training? Not on file Preferred Language Not on file 06/24/2023 Comments Unknown Sex and Gender Information Value Date Recorded Sex Assigned at Not on file Legal Sex Female 12:32 PM EDT Gender Identity Not on file Sexual Orientation Not on file Plan of Treatment Health Maintenance Due Date Last Done Comments ANNUAL PHYSICAL 1987 Annual Gynecologic Pelvic an d Breast Exam 1987 HEPATITIS C SCREENING 1987 TDAP/TD VACCINES (1 - Tdap) 2006 INFLUENZA VACCINE 04/16/2025 Pneumococcal Vaccine 0-49 Aged Out No longer eligible based on patient's age to complete this topic
--- OUTSIDE RECORDS SUMMARY | 2025-06-14 10:45 | XMS_ITS | Encounter Summary ---
Author Organization Healthcare Address [address] [id number] Care Team Providers Care Machine Attendant Name Role Phone Tom Brenner Primary Care Provider [phone] Encounter Details Date Type Department Care Team (Late st Contact Info) Description 05/20/2025 Telephone [facility] [address], [address] [place] [address] Lamont Mckay MD [address] [place] [address] Social History Tobacco Use Types Packs/Day Years Used Date Smoking Tobacco: Some Days Cigars Smokeless Tobacco: Never Alcohol Use Standard Drinks/Week Comments Never 0 [...] any time in the past 12 m [facility], were you homeless or living in a [facility] (including now)? No 08/12/2024 Utilities Answer Date Recorded In the past 12 months has th e electric, gas, oil, or water company threatened to shut off services in your home? No 08/12/2024 Comments Unknown Sex and Gender Information Value Date Recorded Sex Assigned at Not on file Legal Sex Female 8:42 PM EDT Gender Identity Not on file Sexual Orientation Not on file documented as of this encounter Plan of Treatment Not on file documented as of this encounter Visit Diagnoses Not on filedocumented in this encounter Additional Health Concerns Assessment Noted Time A fall risk assessment has been complete d for the patient 08/25/2024 2:44 PM EST A Body Mass Index follow-up plan has been documented for the patient 08/25/2024 11:36 PM EST documented as of this encounter Care Teams Machine Attendant Relationship Specialty Start Date End Date Tom Brenner DO [address] [place] [address] PCP - General 08/12/24 documented as of this encounter
== END 2025-06-11 23:59 ==
LOC: LAB.DROPOF 06-14 10:35
PROVIDERS: PCP Family Medicine; Visit Provider Family Medicine
DX: M10.9 Gout, unspecified (principal)
CPT/HCPCS: 80053; 84550